=== PATIENT | female | born 1950 | race Caucasian/White ===

== ENCOUNTER 2017-11-30 11:42 | Outpatient (CLI) | payer MEDICARE, MEDICAID | END 2017-11-30 11:43 | disposition home or self-care (01) | LOC: BICMAMMO 11:42 | PROVIDERS: ATTEND Family Medicine | DX: Z12.31 Encounter for screening mammogram for malignant neoplasm of breast (principal); R92.8 Other abnormal and inconclusive findings on diagnostic imaging of breast; Z80.3 Family history of malignant neoplasm of breast | CPT/HCPCS: 77063; 77067 ==

== ENCOUNTER → 2017-12-20 | Day surgery (SDC) | payer MEDICARE, MEDICAID | LOC: BICULT 12:36 | PROVIDERS: ATTEND Family Medicine | PROC: 0HBU3ZX Excision of Left Breast, Percutaneous Approach, Diagnostic (ICD-10-PCS; principal; 2017-12-20) | DX: D24.2 Benign neoplasm of left breast (principal) | CPT/HCPCS: 19083; 88305 ==

== ENCOUNTER 2019-09-03 21:36 | Inpatient (IN) | payer MEDICARE, MEDICAID ==
[~2019-09-03 21:36] MED LIST: Iopamidol 370 76% 100 ML VIAL ONE
[2019-09-03] MEDS ORDERED: Adenosine 6 MG/2 ML VIAL ONE (21:59)
[2019-09-03] MEDS ORDERED: Magnesium 2 GM/50 ML BAG (IN WATER) ONE ×2 (22:07→22:24)
[2019-09-03] MEDS ORDERED: Diltiazem 125 MG/25 ML ONE ×2 (22:07→22:09)
[2019-09-03 22:36] LABS: #Basophils 0.1 thou/uL (0.0-0.2); #Eosinphils 0.4 thou/uL (0.0-0.7); #Lymphocytes 2.8 thou/uL (1.20-3.40); #Monocytes 0.8 thou/uL (0.11-0.59); #Neutrophils 6.8 thou/uL (1.40-6.50); %Basophils 0.9 % (0.0-1.0); %Eosinophils 3.7 % (0.0-10.0); %Lymphocytes 25.9 % (21.0-51.0); %Monocytes 7.4 % (0.0-10.0); %Neutrophils 62.1 % (42.0-75.0); Hemoglobin 12.8 g/dL (12.0-16.0); Mean Corpuscular HGB CONC 33.1 g/dL (32.0-36.0); Mean Corpuscular Hemoglobin 28.6 pg (27.0-31.0); Mean Corpuscular Volume 86.3 fL (78.0-98.0); Mean Platelet Volume 7.7 fL (7.4-10.4); Platelet Count 322 thou/uL (130-400); RBC Distribution Width 14.5 % (11.5-14.5); Red Blood Cell (RBC) Count 4.46 mill/uL (4.20-5.40); White Blood Cell (WBC) Count 10.9 thou/uL (4.8-10.8)
[2019-09-03 23:05] LABS: ALT (SGPT) 13 U/L (8-55); AST (SGOT) 17 U/L (5-34); Albumin 4.1 g/dL (3.4-4.8); Alkaline Phosphatase 69 U/L (40-110); Anion Gap 16 mmol/L (10-20); BUN (Urea Nitrogen) 47 mg/dL (9.8-20.1); Bilirubin, Total 0.3 mg/dL (0.2-1.2); Calc. Creatinine Clearance 0 mL/min (70-130); Carbon Dioxide 22 mmol/L (23-31); Chloride 101 mmol/L (98-107); Estimated GFR-MDRD Greater than 90; Globulin 3.8 g/dL (2.4-3.5); Glucose 152 mg/dL (80-115); Lipase 58 U/L (8-78); Protein, Total 7.9 g/dL (6.0-8.3); Sodium 135 mmol/L (136-145)
[2019-09-03 23:19] LABS: CKMB 1.2 ng/mL (0-6.6)
--- NOTE | 2019-09-03 23:44 | RAD ---
PORTABLE CHEST: History: Shortness of breath. Comparison: 01-12-10 FINDINGS: Cardiomegaly. Vascular congestion. I cannot exclude small effusion or bibasilar atelectasis. POS: [facility]
[2019-09-04 00:28] LABS: Bilirubin Negative (Negative); Blood, Urine 1+ (Negative); Clarity Clear (Clear); Glucose, Urine (Dipstick) Normal (Negative); Leukocyte 500 Leu/uL (Negative); Nitrite Negative (Negative); Protein, Urine (Dipstick) 10 mg/dL (Neg-Trace); RBC/HPF 0-3 HPF (0-3); Squamous Epithelial 0-3 HPF (0-3); Urobilinogen Normal mg/dL (Less than 2); WBC/HPF 21-50 HPF (0-3)
[2019-09-04 00:29] LABS: Bacteria/HPF 1+ HPF (None Seen)
[2019-09-04] MEDS ORDERED: cefTRIAXone\\ROCEPHIN 1 GM VIAL ONE (01:45)
[2019-09-04 03:13] LABS: Troponin I 0.023 ng/mL (< 0.028)
[2019-09-04] MEDS ORDERED: Digoxin 0.5 MG/2 ML AMP SLOW IVP SCH (04:45)
[2019-09-04] MEDS ORDERED: Digoxin 0.5 MG/2 ML AMP ONE (04:54)
[2019-09-04] MEDS ORDERED: Metoprolol Tartrate 5 MG/5 ML VIAL ONE (06:38)
[2019-09-04] MEDS ORDERED: Metoprolol Tartrate 5 MG/5 ML VIAL IVP SCH (06:45)
--- NOTE | 2019-09-04 07:21 | CT ---
CTA CHEST WITH CONTRAST: Date: 09/03/2019 Axial tomograms with multiplanar reconstruction following angio protocol. INDICATION: History of supraventricular tachycardia. Shortness of breath. FINDINGS: Pulmonary arteries are adequately opacified. No evidence of pulmonary embolus identified. There are chronic lung changes. No focal infiltrate or effusion. There is a 5.0 mm nodule in the right mid lung seen on image 67 of 102, right middle lobe. Mild inter stitial thickening. There is mild vascular congestion. Cardiomegaly. Images through upper abdomen unremarkable. Thoracic aorta unremarkable. IMPRESSION: 1. No evidence of pulmonary embolus. 2. 5.0 mm nodule in the right middle lobe. Follow-up recommended. 3. No acute lung process. Mild vascular congestion. CODE LN. POS: [facility]
[2019-09-04] MEDS ORDERED: Diltiazem 125 MG in Sodium Chloride 0.9% 100 ML IVPB SCH (10:00)
[2019-09-04] MEDS ORDERED: Lactated Ringer's 1,000 ML IV SCH (10:00)
[2019-09-04] MEDS ORDERED: Heparin 5,000 UNITS/ML VIAL SC SCH ×2 (10:15→15:00)
--- NOTE | 2019-09-04 14:28 | CON ---
DATE OF CONSULTATION: 09/04/2019 INDICATION FOR CONSULTATION: A 69-year-old female with new onset atrial flutter. 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 She has had no previous cardiac history, but did undergo a stress test several years ago by Dr. Martin, prior to undergoing a workup for possible gastric bypass surgery, bariatric surgery. This was not performed, but the preop test apparently did not show any evidence of ischemia. She has had no previous cardiac history otherwise that she is aware. She denies any chest pain or significant shortness of breath. She says she does have occasional mild shortness of breath, but when the heart rate gets very fast for the last couple weeks, she has noticed that she had an increased heart rate and when the nurses in the skilled nursing have been checking her heart rate sometimes her heart rate has been as high as 130 to 160, but apparently no one was informed of this and the patient was remaining asymptomatic. She did not have any chest pain, but apparently when her physician was making rounds yesterday, she told about this and noticed the heart rate was fast. She was sent to the emergency room, she was noted to be in a rapid heart rate with atrial flutter with a heart rate in the 150s to 160s, but she still remains relatively asymptomatic despite the rapid heart rate and the atrial flutter. She has had some possible history of supraventricular tachycardia. She had been given some adenosine in the past, but apparently this was not adequate to change her back to a sinus rhythm. She also was given some medications, which dropped her heart rate down to the 60s, but they went back to the 180s and vagal maneuvers also did not significantly change her heart rate. She did have some decrease in her blood pressure. At this time, she has been placed on IV diltiazem and the heart rate is under much better control. She is in the 60s now, but still has atrial flutter, which appears to be with a variable block. PAST MEDICAL HISTORY: Significant for polio, which has affected all four extremities. Her left leg is stronger than the right, but she also has left-sided arthritis. Otherwise, she has had no significant problems with the poliomyelitis. She does have decreased ambulation. She has had bedsores. She has bronchitis. She has frequent urinary tract infections. She is almost quadriplegic, but hemiplegic. She is in the bed most of the time and cannot even mobilize in the bed to a chair. She does have type 2 diabetes. She also has a history of hypertension. She denied any other significant medical problems. She has had pain both in the shoulders, more so on the right than the left. She has had a . She has had a hysterectomy. SOCIAL HISTORY: She is a resident in a skilled nursing. She smoked many, many years ago only for about a year and then stopped smoking. She has no other illicit drug use. She has children, who are alive and well. She lives in the long-term care facility. ALLERGIES: SHE IS ALLERGIC TO BACTRIM. MEDICATIONS: Prior to admission, she said she was taking metformin and glyburide. She was taking an ARB and I believe that was recently changed by the insurance company. She is unsure as to what she is taking and she takes multivitamins. She also takes some type of medication she says for wound healing, but she was uncertain of the name of the medication. REVIEW OF SYSTEMS: GENERAL: Relatively unremarkable except she does have occasional allergies. She said that she has had no other complaints. HEENT: She wears glasses. Has false teeth. PULMONARY: She had no pulmonary complaints otherwise and occasional bronchitis. GI: She had no GI complaints. : Occasional urinary tract infections. MUSCULOSKELETAL: She has some left arm arthritis. PHYSICAL EXAMINATION: GENERAL: Reveals an elderly female, who is in no acute distress at this time. She is morbidly obese. She is in the bed. She is unable to get out of the bed. VITAL SIGNS: Her blood pressure was 121/58, heart rate at this time is in the 60s, but she had previously been always up of 160 beats per minute. She is afebrile and respiratory rate 16. HEENT: Shows the head to be normocephalic and atraumatic. Carotid pulses are present. There were no bruits. CHEST: Clear to auscultation. I did not hear any rales, rhonchi, or wheezing. CARDIOVASCULAR: Reveals a regular rate at this time, under good control. The monitor shows what appears to be atrial flutter with a variable block. ABDOMEN: Shows obesity with positive bowel sounds. I cannot palpate any masses or tenderness. EXTREMITIES: Showed no clubbing. She does have some malformation of the feet. She also has some mild edema. Pulses are difficult to palpate due to the edema. NEUROLOGIC: As noted above, she is hardly able to move any of her extremities, but the right is weaker than the left, but she does have hemiplegia. NEUROPSYCH: She does not have any other significant abnormalities such as severe depression or suicidal ideation. SKIN: Warm and dry. DIAGNOSTIC STUDIES: Her EKG shows what appears to be atrial flutter in the emergency room. According to the records, she appeared to be in supraventricular tachycardia with a heart rate of 182 beats per minute. LABORATORY DATA: Her WBC is 10.9, hemoglobin 12.8, and platelet count 322,000. Sodium is 135, potassium 4.0, BUN 47, creatinine 0.62, and blood sugar was 152. Troponin I was 0.042 decreased down to 0.023 and down again to 0.020. BNP was 41. Urinalysis shows 1+ bacteria. IMPRESSION AND PLAN: 1. Elderly morbidly obese female, who is essentially bed ridden, who has developed what appears to be atrial flutter. We will ask senior payroll specialist to visit with the patient, see whether or not she would be a candidate to undergo a transesophageal echocardiogram and then possible ablation of the atrial flutter. We would agree at this time with continuing her heparin, for which she has been placed on IV diltiazem and heparin at this time. 2. History of diabetes. This will be dealt with by the Primary Care Service. 3. History of hypertension. She is under very good control at this time. We will continue to monitor this. We may need to reinstate some type of blood pressure medications. 4. Post-polio syndrome. She is in a long-term care facility due to her inability to take care of herself. She is almost unable to move. She does have hemiparesis and almost appears to be quadriplegic, but is still alert and oriented. We will be more than happy to continue to follow the patient with you, but we will also obtain an echocardiogram for evaluation of left ventricular systolic function. We will await further recommendations from the senior payroll specialist. Job ID: [id number]
--- NOTE | 2019-09-04 15:25 | PDOC.HHP ---
Hospitalist HPI - History of Present Illness shortness of breath and palpitations History of Present Illness: Ms. Ibarra is a 69yo F w/ MHx of Polio, T2DM, adn HTN who presents for shortness of breath associated with palpitaitions. Has been having episodic shortness of breath temporally related to the heart beating fast over the past two weeks in [facility], where she resides. Earlier today, nurse noticed that the patient had elevated heart rate while compllaining of shortness of breath, so sent her to the ED. On encounter, lying comfortably in bed. Endorses temporal correlation between shortness of breath and palpitations for the past two weeks. Denies fatigue, generalized weakness, fever ,chills, night sweats, heat intolerance, cough, sputum production, chest pressure or pain, pleuritic pain, blood loss, melena, hematochezia, sick contacts, cardiac history, smoking, ROSI, pulmonary disease ED Course: In the ED, found to initially have difficult to control SVT. administered metoprolol, digoxin without sigfniciant improvement. Adenosine was administered and showed atrial flutter. As patients's blood pressure improved, cardizem started and rate improved to 70s, atrial flutter. She was admitted to telemetry for further workup and monitoring. Hospitalist ROS - Review of Systems Constitutional: denies: fever, chills, sweats, weakness, malaise, other Respiratory: denies: cough, dry, shortness of breath, hemoptysis, SOB with excertion, pleuritic pain, sputum, wheezing, other Cardiovascular: reports: palpitations, edema (edema chronic). denies: orthopnea , paroxysmal noc. dyspnea, light headedness Gastrointestinal: denies: nausea, vomiting, abdominal pain, diarrhea, constipation, melena, hematochezia, other Genitourinary: reports: other (chronic urinary sun last changed day prior to presentation (09/02)). denies: dysuria, frequency, incontinence, hematuria, retention Neurological: reports: weakness (can move UE and LLE, can't RLE; at baseline). denies: change in speech, confusion, seizures - Medication Medications: Active Medications Generic Name Dose Route Start Last Admin Trade Name Freq PRN Reason Stop Dose Admin Heparin Sodium (Porcine) 5,000 units 09/04/19 15:00 09/04/19 14:47 Heparin SC 5,000 units TID [facility] Hospitalist History - Past Medical History Source: patient Cardiac: reports: HTN. denies: AFIB, CAD, CHF, Syncope Pulmonary: reports: hypertension. denies: CVA/TIA/stroke, congestive heart failure, COPD, lung disease Gastrointestinal: denies: GI bleed Endocrine: reports: Diabetes Other Medical History: polio - Past Surgical History Past Surgical History: reports: no pertinent history - Family History Family History: reports: diabetes mellitus - Social History Smoking Status: Never smoker Alcohol: reports: None Drugs: reports: none Living Situation: [facility] Activity level: wheelchair bound - Exam General Appearance: NAD, awake alert Eye: PERRL, anicteric sclera Neck: no JVD Heart: no murmur, no gallops, irregular, diminshed peripheral pulses Respiratory: CTAB, no wheezes, no rales, no ronchi Gastrointestinal: soft, non-tender, non-distended, normal bowel sounds Extremities: 2+ LE edema Extremities - other findings: nonpitting edema Neurological: cranial nerve grossly intact, normal sensation to touch, no focal deficits, no new deficit. negative: facial droop Musculoskeletal - other findings: UE: 3/5, RLE 0/5, LLE 3/5; pretibial erythema Psychiatric: normal affect, normal behavior, A&O x 3 Hospitalist Results - Labs Result Diagrams: 09/03/19 22:24 09/03/19 22:24 Lab results: WBC 10.9 thou/uL (4.8-10.8) H 09/03/19 22:24 Hgb 12.8 g/dL (12.0-16.0) 09/03/19 22:24 Hct 38.5 % (36.0-47.0) 09/03/19 22:24 MCV 86.3 fL (78.0-98.0) 09/03/19 22:24 Plt Count 322 thou/uL (130-400) 09/03/19 22:24 Neutrophils % 62.1 % (42.0-75.0) 09/03/19 22:24 Sodium 135 mmol/L (136-145) L 09/03/19 22:24 Potassium 4.0 mmol/L (3.5-5.1) 09/03/19 22:24 Chloride 101 mmol/L (98-107) 09/03/19 22:24 Carbon Dioxide 22 mmol/L (23-31) L 09/03/19 22:24 BUN 47 mg/dL (9.8-20.1) H 09/03/19 22:24 Creatinine 0.62 mg/dL (0.6-1.1) 09/03/19 22:24 Glucose 152 mg/dL (80-115) H 09/03/19 22:24 Calcium 10.0 mg/dL (7.8-10.44) 09/03/19 22:24 Total Bilirubin 0.3 mg/dL (0.2-1.2) 09/03/19 22:24 AST 17 U/L (5-34) 09/03/19 22:24 ALT 13 U/L (8-55) 09/03/19 22:24 Alkaline Phosphatase 69 U/L (40-110) 09/03/19 22:24 CK-MB (CK-2) 1.2 ng/mL (0-6.6) 09/03/19 22:24 Troponin I 0.020 ng/mL (< 0.028) 09/04/19 05:18 B-Natriuretic Peptide 41.4 pg/mL (0-100) 09/03/19 22:24 Serum Total Protein 7.9 g/dL (6.0-8.3) 09/03/19 22:24 Albumin 4.1 g/dL (3.4-4.8) 09/03/19 22:24 Lipase 58 U/L (8-78) 09/03/19 22:24 Urine Ketones Negative mg/dL (Negative) 09/03/19 23:33 Urine Blood 1+ (Negative) A 09/03/19 23:33 Urine Nitrite Negative (Negative) 09/03/19 23:33 Ur Leukocyte Esterase 500 [place]/uL (Negative) A 09/03/19 23:33 Urine RBC 0-3 HPF (0-3) 09/03/19 23:33 Urine WBC 21-50 HPF (0-3) A 09/03/19 23:33 Ur Squamous Epith Cells 0-3 HPF (0-3) 09/03/19 23:33 Urine Bacteria 1+ HPF (None Seen) A 09/03/19 23:33 - EKG Interpretation EKG: atrial flutter, HR 70s on cardizem 5mg drip Hospitalist H&P A/P - Problem (1) New onset atrial flutter Code(s): I48.92 - UNSPECIFIED ATRIAL FLUTTER Status: Acute (2) Type 2 diabetes mellitus Status: Acute (3) Hypertension Code(s): I10 - ESSENTIAL (PRIMARY) HYPERTENSION Status: Acute (4) Polio Code(s): A80.9 - ACUTE POLIOMYELITIS, UNSPECIFIED Status: Acute - Plan Plan: #new onset atrial flutter -symtpoms for past two weeks -chadsvasc 4, hasbled 2; no contraindication to anticoagulation -currently rate controlled on cardizem drip 5mg/hr Plan: -start lovenox -continue cardizem; goal HR <110 or <85 if symptomatic; can increase to 7.5mg/ hr if above -pending EP evaluation #Type 2 DM -started mild sliding scale #HTN -started home medicatiions disposition/PPx -full code per patient -DVT PPx: on lovenox for atiral flutter -GI PPx: not indication Expected LOS: 2 midnights
[2019-09-04] MEDS: Sodium Chloride 0.9% 1,000 ML IV SCH (19:16)
[2019-09-04] MEDS: Diltiazem 125 MG in Sodium Chloride 0.9% 100 ML IVPB SCH (19:25)
[2019-09-04] MEDS ORDERED: Cyclobenzaprine 10 MG TAB PO PRN (19:34)
[2019-09-04] MEDS ORDERED: Melatonin 3 MG TAB PO PRN (19:34)
[2019-09-04] MEDS ORDERED: diphenhydrAMINE 50 MG CAP PO PRN (19:34)
[2019-09-04] MEDS: Enoxaparin Sodium 100 MG/ML SYRINGE SC SCH (20:23)
--- NOTE | 2019-09-04 22:56 | EKG ---
Test Reason : Blood Pressure : / mmHG Vent. Rate : 063 BPM Atrial Rate : 058 BPM P-R Int : 000 ms QRS Dur : 088 ms QT Int : 416 ms P-R-T Axes : 000 005 -14 degrees QTc Int : 425 ms Atrial fibrillation Low voltage QRS Nonspecific T wave abnormality , probably digitalis effect Abnormal ECG When compared with ECG of 03-SEP-2019 23:20, (Unconfirmed) Atrial fibrillation has replaced Sinus rhythm Vent. rate has decreased BY 68 BPM Incomplete right bundle branch block is no longer Present Confirmed by TUNDE CARLIN, SSang ([id number]) on 09/04/2019 10:56:33 PM Referred By: JUANCARLOS Confirmed By:DR. Daniel GRIFFITHS MD
[2019-09-05] MEDS ORDERED: Acetaminophen 325 MG TAB PO PRN (03:46)
[2019-09-05 04:26] LABS: Hemoglobin 10.4 g/dL (12.0-16.0); Platelet Count 295 thou/uL (130-400)
[2019-09-05 04:49] LABS: Anion Gap 11 mmol/L (10-20); BUN (Urea Nitrogen) 21 mg/dL (9.8-20.1); Calc. Creatinine Clearance 164 mL/min (70-130); Calcium 8.8 mg/dL (7.8-10.44); Carbon Dioxide 23 mmol/L (23-31); Chloride 105 mmol/L (98-107); Estimated GFR-MDRD Greater than 90; Glucose 121 mg/dL (80-115); Magnesium 1.9 mg/dL (1.6-2.6); Potassium 3.7 mmol/L (3.5-5.1); Sodium 135 mmol/L (136-145)
[2019-09-05] MEDS ORDERED: FLU VACC TS2019-20(65YR UP)/PF 180 MCG/0.5 ML SYRINGE IM ONE (09:00)
[2019-09-05] MEDS: Saccharomyces boulardii 250 MG CAP PO SCH (09:11)
[2019-09-05] MEDS: Triamterene/Hydrochlorothiazide 37.5 mg/25 mg Tablet PO SCH (09:11)
[2019-09-05] MEDS: Aspirin 81 mg Enteric Coated Tablet PO SCH (09:11)
[2019-09-05] MEDS: Sodium Chloride 0.9% 1,000 ML IV SCH ×2 (09:12→22:19)
--- NOTE | 2019-09-05 11:18 | PDOC.CPN ---
- Subjective Date: 09/05/19 Time: 08:30 Interval history: The pt seen and examined. No overnight events. No cardiac complaints. - Objective Allergies/Adverse Reactions: Allergies Allergy/AdvReac Type Severity Reaction Status Date / Time sulfamethoxazole Allergy Verified 09/04/19 14:45 [From Bactrim] trimethoprim [From Bactrim] Allergy Verified 09/04/19 14:45 Visit Medications: Current Medications Acetaminophen (Tylenol) 650 mg PO Q6H PRN PRN Reason: Pain Last Admin: 09/05/19 03:54 Dose: 650 mg Aspirin (Ecotrin) 81 mg PO DAILY [facility] Last Admin: 09/05/19 09:11 Dose: 81 mg Cyclobenzaprine HCl (Flexeril) 5 mg PO Q8H PRN PRN Reason: Muscle Spasm Diphenhydramine HCl (Benadryl) 50 mg PO Q6H PRN PRN Reason: .Itching Enoxaparin Sodium (Lovenox) 100 mg SC 0900,2100 [facility] Last Admin: 09/04/19 20:23 Dose: 100 mg Diltiazem HCl 125 mg/ Sodium (Chloride) 125 mls @ 5 mls/hr IVPB INF [facility]; Protocol Last Admin: 09/04/19 19:25 Dose: 125 mls Sodium Chloride (Normal Saline 0.9%) 1,000 mls @ 70 mls/hr IV .[id number] [facility] Last Admin: 09/05/19 09:12 Dose: 1,000 mls Insulin Human Lispro (Humalog) 0 units SC .MILD SLIDING SCALE PRN PRN Reason: Mild Correctional Scale Magnesium Hydroxide (Milk Of Magnesium) 30 ml PO DAILY PRN PRN Reason: Constipation Melatonin (Melatonin) 3 mg PO HS PRN PRN Reason: Insomnia Saccharomyces Boulardii (Florastor) 250 mg PO DAILY [facility] Last Admin: 09/05/19 09:11 Dose: 250 mg Triamterene/HCTZ (Maxzide-25) 1 tab PO DAILY [facility] Last Admin: 09/05/19 09:11 Dose: 1 tab Vital Signs & Weight: Vital Signs Temp Pulse Resp BP Pulse Ox 09/05/19 08:00 97.9 F 127 H 17 115/74 93 L 09/05/19 03:33 98.3 F 108 H 18 116/61 96 09/05/19 00:00 98.4 F 126 H 22 H 118/66 96 Weight 214 lb 6.4 oz - Physical Exam General: alert & oriented x3 HEENT: mucus membranes moist Neck: supple neck Cardiac: irregularly regular Lungs: clear to auscultation, decreased breath sounds - Labs Result Diagrams: 09/05/19 04:07 09/05/19 04:07 Troponin/CKMB CK-MB (CK-2) 1.2 ng/mL (0-6.6) 09/03/19 22:24 Troponin I 0.020 ng/mL (< 0.028) 09/04/19 05:18 - Telemetry Supraventricular conduction: atrial flutter - Assessment/Plan Assessment/Plan: 1. New onset Atrial flutter - HR has been 90-120s with Diltiazem 5mg/h; will start Coreg 3.125mg BID from today; if she cannot tolerate, may change to Digoxin; On Lovenox BID; Possible Aflutter RFA by Dr Gillespie in 2 days. 2. HTN - stable 3. DM type 2 - 4. Frequent UTIs 5. Polio - 6. Obese - strongly recommend to watch her diet. MAR reviewed Pt. seen and eval. by me.I agree with the A/P by the LAMINATING MACHINE OFFBEARER.Chest clear. regular rhythm. Monitor indicates atrial flutter. See plan per 's note. sergo
[2019-09-05] MEDS ORDERED: Carvedilol 3.125 MG TAB PO SCH (11:30)
[2019-09-05] MEDS: Enoxaparin Sodium 100 MG/ML SYRINGE SC SCH ×2 (11:59→20:13)
--- NOTE | 2019-09-05 13:10 | PDOC.EP ---
- Subjective Date: 09/05/19 Time: 08:00 Interval History: Follow up for atrial arrhythmias. Feels well. She is wanting an ablation instead of CV now. Voices no complaints. - Review of Systems Constitutional: denies: chills, fever, malaise, sweats, weakness, other Respiratory: denies: cough, dry, hemoptysis, pleuritic pain, shortness of breath , SOB with excertion, sputum, wheezing Cardiology: denies: chest pain, edema, heart racing, light headedness, palpitations Gastrointestinal: denies: abdominal pain, constipation, diarrhea - Objective Allergies/Adverse Reactions: Allergies Allergy/AdvReac Type Severity Reaction Status Date / Time sulfamethoxazole Allergy Verified 09/04/19 14:45 [From Bactrim] trimethoprim [From Bactrim] Allergy Verified 09/04/19 14:45 Current Medications Acetaminophen (Tylenol) 650 mg PO Q6H PRN PRN Reason: Pain Last Admin: 09/05/19 03:54 Dose: 650 mg Aspirin (Ecotrin) 81 mg PO DAILY [facility] Last Admin: 09/05/19 09:11 Dose: 81 mg Carvedilol (Coreg) 3.125 mg PO BID-[facility] Carvedilol (Coreg) 3.125 mg PO NOW [facility] Stop: 09/05/19 13:30 Last Admin: 09/05/19 11:58 Dose: 3.125 mg Cyclobenzaprine HCl (Flexeril) 5 mg PO Q8H PRN PRN Reason: Muscle Spasm Diphenhydramine HCl (Benadryl) 50 mg PO Q6H PRN PRN Reason: .Itching Enoxaparin Sodium (Lovenox) 100 mg SC 0900,2100 [facility] Last Admin: 09/05/19 11:59 Dose: 100 mg Diltiazem HCl 125 mg/ Sodium (Chloride) 125 mls @ 5 mls/hr IVPB INF [facility]; Protocol Last Admin: 09/04/19 19:25 Dose: 125 mls Sodium Chloride (Normal Saline 0.9%) 1,000 mls @ 70 mls/hr IV .[id number] [facility] Last Admin: 09/05/19 09:12 Dose: 1,000 mls Insulin Human Lispro (Humalog) 0 units SC .MILD SLIDING SCALE PRN PRN Reason: Mild Correctional Scale Magnesium Hydroxide (Milk Of Magnesium) 30 ml PO DAILY PRN PRN Reason: Constipation Melatonin (Melatonin) 3 mg PO HS PRN PRN Reason: Insomnia Saccharomyces Boulardii (Florastor) 250 mg PO DAILY [facility] Last Admin: 09/05/19 09:11 Dose: 250 mg Triamterene/HCTZ (Maxzide-25) 1 tab PO DAILY [facility] Last Admin: 09/05/19 09:11 Dose: 1 tab Vital Signs & Weight: Vital Signs Temp Pulse Pulse Pulse Resp BP BP 09/05/19 12:00 97.2 F L 99 17 09/05/19 09:35 72 127 H 151/72 H 115/74 09/05/19 08:00 97.9 F 127 H 17 09/05/19 03:33 98.3 F 108 H 18 BP Pulse Ox 09/05/19 12:00 129/91 H 94 L 09/05/19 09:35 09/05/19 08:00 115/74 93 L 09/05/19 03:33 116/61 96 Weight 214 lb 6.4 oz I/O: I/O 09/04/19 09/05/19 09/06/19 06:59 06:59 06:59 Intake Total 2243 Output Total 1905 Balance 338 - Quality Measures Condition: Atrial Fibrillation/Flutter (hx or current) (lovenox) - Physical Exam General: alert & oriented x3, appears well, no apparent distress, speech clear, affect appropriate HEENT: mucus membranes moist, normocephaly Neck: supple neck, midline trachea, no JVD/HJR, no masses, no bruit, no lymphadenopathy, no thromegaly Cardiology: PMI nondisplaced Lungs: clear to auscultation Neurology: cranial nerve 2-12 intact, sensory function intact, no lateralizing findings Abdomen: unremarkable, active bowel sounds, no pulsations/bruits - Labs Result Diagrams: 09/05/19 04:07 09/05/19 04:07 - EKG Interpretation EKG Method: Telemetry EKG shows: Typical atrial flutter - Assessment/Plan Assessment/Plan: 1. Atrial flutter -appears CTI dependent 2. Obesity 3. Paraplegic 4. Anticoagulation with lovenox Discussed treatment options with patient at length yesterday. After consideration she wishes to proceed with KATHY guided CTI ablation. Scheduled for 09/05 at 2pm. If no intra-atrial thrombus identified by KATHY will proceed with CTI ablation. Continue lovenox. R/B/A discussed and patient is wishing to proceed.
[2019-09-05 14:37] VITALS: BMI 40.5
[2019-09-05] MEDS: Carvedilol 3.125 MG TAB PO SCH (17:45)
--- NOTE | 2019-09-05 21:46 | PDOC.HOSPP ---
- Subjective Encounter Date: 09/05/19 Encounter Time: 09:00 Subjective: no overnight events. HR 90-100s. Has no complaints. Pending ablation. - Objective Vital Signs & Weight: Vital Signs (12 hours) Temp Pulse Resp BP Pulse Ox 09/05/19 20:00 99.1 F 87 18 135/73 94 L 09/05/19 16:00 97.5 F L 102 H 26 H 160/71 H 96 09/05/19 12:00 97.2 F L 99 17 129/91 H 94 L Weight Admit Weight 212 lb 12.8 oz Weight 214 lb 6.4 oz I&O: 09/04/19 09/05/19 09/06/19 06:59 06:59 06:59 Intake Total 2243 1800 Output Total 1905 800 Balance 338 1000 Result Diagrams: 09/05/19 04:07 09/05/19 04:07 Additional Labs: Accuchecks 09/05/19 09/05/19 09/05/19 20:27 16:36 10:32 POC Glucose 197 H 204 H 150 H 09/05/19 05:37 POC Glucose 133 H Hospitalist ROS - Review of Systems Constitutional: denies: fever, chills, sweats, weakness, malaise, other Respiratory: denies: cough, dry, shortness of breath, hemoptysis, SOB with excertion, pleuritic pain, sputum, wheezing, other Cardiovascular: denies: chest pain, palpitations, orthopnea, paroxysmal noc. dyspnea, edema, light headedness, other Gastrointestinal: denies: nausea, vomiting, abdominal pain, diarrhea, constipation, melena, hematochezia, other Genitourinary: denies: dysuria, frequency, incontinence, hematuria, retention, other - Medication Medications: Active Medications Generic Name Dose Route Start Last Admin Trade Name Freq PRN Reason Stop Dose Admin Acetaminophen 650 mg 09/05/19 03:46 09/05/19 03:54 Tylenol PO 650 mg Q6H PRN Administration Pain Aspirin 81 mg 09/05/19 09:00 09/05/19 09:11 Ecotrin PO 81 mg DAILY BLANQUITA Administration Carvedilol 3.125 mg 09/05/19 17:00 09/05/19 17:45 Coreg PO 3.125 mg BID- BLANQUITA Administration Enoxaparin Sodium 100 mg 09/04/19:00 09/05/19 20:13 Lovenox SC 100 mg 0900,2100 BLANQUITA Administration Diltiazem HCl 125 mg/ Sodium 125 mls @ 5 mls/hr 09/04/19 15:30 09/04/19 19:25 Chloride IVPB 125 mls INF BLANQUITA Administration Protocol Sodium Chloride 1,000 mls @ 70 mls/hr 09/04/19 18:30 09/05/19 09:12 Normal Saline 0.9% IV 1,000 mls .[id number] BLANQUITA Administration Saccharomyces Boulardii 250 mg 09/05/19 09:00 09/05/19 09:11 Florastor PO 250 mg DAILY BLANQUITA Administration Triamterene/HCTZ 1 tab 09/05/19 09:00 09/05/19 09:11 Maxzide-25 PO 1 tab DAILY BLANQUITA Administration - Exam General Appearance: NAD, awake alert Heart: no murmur, no gallops, no rubs, irregular Heart - other findings: HR 90s-100s, aflut on telemetry Respiratory: CTAB, no wheezes, no rales, no ronchi, normal chest expansion, no tachypnea, normal percussion Gastrointestinal: soft, non-tender, non-distended, normal bowel sounds, no palpable masses, no hepatomegaly, no splenomegaly, no bruit Extremities: 2+ LE edema Musculoskeletal - other findings: unchanged Psychiatric: normal affect, normal behavior, A&O x 3 Hosp A/P (1) New onset atrial flutter Code(s): I48.92 - UNSPECIFIED ATRIAL FLUTTER Status: Acute (2) Type 2 diabetes mellitus Status: Acute (3) Hypertension Code(s): I10 - ESSENTIAL (PRIMARY) HYPERTENSION Status: Acute (4) Polio Code(s): A80.9 - ACUTE POLIOMYELITIS, UNSPECIFIED Status: Acute - Plan (1) New onset atrial flutter Code(s): I48.92 - UNSPECIFIED ATRIAL FLUTTER Status: Acute (2) Type 2 diabetes mellitus Status: Acute (3) Hypertension Code(s): I10 - ESSENTIAL (PRIMARY) HYPERTENSION Status: Acute (4) Polio Code(s): A80.9 - ACUTE POLIOMYELITIS, UNSPECIFIED Status: Acute Plan: #new onset atrial flutter -continue cardizem; goal HR <110 or <85 if symptomatic; can increase to 7.5mg/ hr if above -pending EP ablation 09/05 #Type 2 DM -started mild sliding scale #HTN -continue home medicatiions disposition/PPx -full code per patient -DVT PPx: on lovenox for atiral flutter -GI PPx: not indication Expected LOS: 2 midnights
[2019-09-05] MEDS: Diltiazem 125 MG in Sodium Chloride 0.9% 100 ML IVPB SCH (22:19)
[2019-09-05] MEDS: Milk Of Magnesia 30 ML UDCUP PO PRN (22:26)
[2019-09-06 04:46] LABS: #Eosinphils 0.3 thou/uL (0.0-0.7); #Lymphocytes 1.3 thou/uL (1.20-3.40); #Monocytes 0.5 thou/uL (0.11-0.59); #Neutrophils 5.9 thou/uL (1.40-6.50); %Basophils 0.5 % (0.0-1.0); %Eosinophils 3.3 % (0.0-10.0); %Lymphocytes 15.8 % (21.0-51.0); %Monocytes 6.8 % (0.0-10.0); %Neutrophils 73.5 % (42.0-75.0); Hemoglobin 10.7 g/dL (12.0-16.0); Mean Corpuscular HGB CONC 32.8 g/dL (32.0-36.0); Mean Corpuscular Hemoglobin 28.5 pg (27.0-31.0); Mean Corpuscular Volume 86.9 fL (78.0-98.0); Platelet Count 310 thou/uL (130-400); RBC Distribution Width 14.2 % (11.5-14.5); Red Blood Cell (RBC) Count 3.74 mill/uL (4.20-5.40)
[2019-09-06 05:10] LABS: Anion Gap 10 mmol/L (10-20); BUN (Urea Nitrogen) 18 mg/dL (9.8-20.1); Calc. Creatinine Clearance 152 mL/min (70-130); Calcium 8.6 mg/dL (7.8-10.44); Carbon Dioxide 24 mmol/L (23-31); Chloride 106 mmol/L (98-107); Estimated GFR-MDRD Greater than 90; Glucose 141 mg/dL (80-115); Magnesium 1.9 mg/dL (1.6-2.6); Potassium 4.1 mmol/L (3.5-5.1); Sodium 136 mmol/L (136-145)
[2019-09-06] MEDS: Triamterene/Hydrochlorothiazide 37.5 mg/25 mg Tablet PO SCH (06:10)
[2019-09-06] MEDS: Aspirin 81 mg Enteric Coated Tablet PO SCH (06:10)
[2019-09-06] MEDS: Carvedilol 3.125 MG TAB PO SCH ×2 (06:10→18:55)
[2019-09-06] MEDS: Saccharomyces boulardii 250 MG CAP PO SCH (06:10)
[2019-09-06] MEDS: Enoxaparin Sodium 100 MG/ML SYRINGE SC SCH ×2 (07:40→21:17)
[2019-09-06] MEDS ORDERED: Rocuronium Bromide 10 MG/ML (10ML VIAL) ONE (09:41)
[2019-09-06] MEDS ORDERED: Glycopyrrolate 0.2 MG/ML 5 ML SYRINGE ONE (09:41)
[2019-09-06] MEDS ORDERED: Succinylcholine Chloride 20 MG/ML 10 ml SYRINGE FS ONE (09:41)
[2019-09-06] MEDS ORDERED: PROPOFOL 200 MG/20 ML VIAL ONE (09:41)
[2019-09-06] MEDS ORDERED: Lidocaine 1% PF 5 ML VIAL ONE (09:41)
[2019-09-06] MEDS ORDERED: EPHEDRINE 25 MG/5 ML SYRINGE ONE (09:41)
--- NOTE | 2019-09-06 10:57 | PDOC.CPN ---
- Subjective Date: 09/06/19 Time: 08:30 Interval history: The pt seen and examined. No overnight events. No cardiac complaints. - Objective Allergies/Adverse Reactions: Allergies Allergy/AdvReac Type Severity Reaction Status Date / Time sulfamethoxazole Allergy Verified 09/04/19 14:45 [From Bactrim] trimethoprim [From Bactrim] Allergy Verified 09/04/19 14:45 Visit Medications: Current Medications Acetaminophen (Tylenol) 650 mg PO Q6H PRN PRN Reason: Pain Last Admin: 09/05/19 03:54 Dose: 650 mg Aspirin (Ecotrin) 81 mg PO DAILY [facility] Last Admin: 09/06/19 06:10 Dose: 81 mg Carvedilol (Coreg) 3.125 mg PO BID-[facility] Last Admin: 09/06/19 06:10 Dose: 3.125 mg Cyclobenzaprine HCl (Flexeril) 5 mg PO Q8H PRN PRN Reason: Muscle Spasm Diphenhydramine HCl (Benadryl) 50 mg PO Q6H PRN PRN Reason: .Itching Enoxaparin Sodium (Lovenox) 100 mg SC 0900,2100 [facility] Last Admin: 09/06/19 07:40 Dose: Not Given Diltiazem HCl 125 mg/ Sodium (Chloride) 125 mls @ 5 mls/hr IVPB INF [facility]; Protocol Last Admin: 09/05/19 22:19 Dose: 125 mls Sodium Chloride (Normal Saline 0.9%) 1,000 mls @ 70 mls/hr IV .[id number] [facility] Last Admin: 09/05/19 22:19 Dose: 1,000 mls Insulin Human Lispro (Humalog) 0 units SC .MILD SLIDING SCALE PRN PRN Reason: Mild Correctional Scale Magnesium Hydroxide (Milk Of Magnesium) 30 ml PO DAILY PRN PRN Reason: Constipation Last Admin: 09/05/19 22:26 Dose: 30 ml Melatonin (Melatonin) 3 mg PO HS PRN PRN Reason: Insomnia Saccharomyces Boulardii (Florastor) 250 mg PO DAILY [facility] Last Admin: 09/06/19 06:10 Dose: 250 mg Triamterene/HCTZ (Maxzide-25) 1 tab PO DAILY [facility] Last Admin: 09/06/19 06:10 Dose: 1 tab Vital Signs & Weight: Vital Signs Temp Pulse Resp BP Pulse Ox 09/06/19 07:41 98.2 F 78 18 121/73 95 09/06/19 03:15 98.5 F 86 20 117/68 95 Admit Weight 212 lb 12.8 oz Weight 214 lb 6.4 oz - Physical Exam General: alert & oriented x3 HEENT: mucus membranes moist Neck: supple neck Cardiac: irregularly regular Lungs: decreased breath sounds - Labs Result Diagrams: 09/06/19 04:08 09/06/19 04:08 Troponin/CKMB CK-MB (CK-2) 1.2 ng/mL (0-6.6) 09/03/19 22:24 Troponin I 0.020 ng/mL (< 0.028) 09/04/19 05:18 - Telemetry Supraventricular conduction: atrial flutter - Assessment/Plan Assessment/Plan: 1. New onset Atrial flutter - HR has been 70-100s with Diltiazem 5mg/h and Coreg 3.125mg BID; Plan for KATHY and CTI ablation today; 2. HTN - stable 3. DM type 2 - 4. Frequent UTIs 5. Polio - 6. Obese - strongly recommend to watch her diet. MAR shaniqua
[2019-09-06] MEDS: Sodium Chloride 0.9% 1,000 ML IV SCH (12:48)
[2019-09-06] MEDS ORDERED: Lidocaine 1% (PF) 30 ML VIAL ONE (13:10)
[2019-09-06] MEDS ORDERED: Heparin 10,000 UNITS/1 ML VIAL ONE (13:10)
[2019-09-06] MEDS ORDERED: Fentanyl 100 MCG/2 ML VIAL ONE ×2 (14:04→17:18)
[2019-09-06] MEDS ORDERED: Ketamine 50 MG/ML (10ML VIAL) ONE (14:04)
[2019-09-06] MEDS ORDERED: Midazolam HCl 2 mg/2 ml Vial ONE (14:04)
[2019-09-06] MEDS ORDERED: Propofol 1,000 MG/100 ML VIAL IV ONE (14:04)
[2019-09-06] MEDS ORDERED: DOPamine 400 MG/D5W 250 ML 250 ML ONE (15:12)
[2019-09-06] MEDS ORDERED: SUGAMMADEX SODIUM 200 MG/2 ML VIAL ONE (17:06)
[2019-09-06] MEDS ORDERED: Ketorolac Tromethamine 30 MG/ML VIAL IVP PRN (18:13)
[2019-09-06] MEDS ORDERED: HYDROcodone/Acetaminophen 5/325 mg Tablet PO PRN ×2 (18:15)
--- NOTE | 2019-09-06 20:32 | PDOC.HOSPP ---
- Subjective Encounter Date: 09/06/19 Encounter Time: 11:00 Subjective: no overnight events. ENdorses being midly nervous prior to the procudere so explained the procedure to her. Has no complaints. HR better controlled with cardizem and coreg. - Objective Vital Signs & Weight: Vital Signs (12 hours) Temp Pulse Resp BP Pulse Ox 09/06/19 18:02 97.4 F L 78 18 121/92 H 99 09/06/19 11:15 98.3 F 99 18 125/69 95 Weight Admit Weight 212 lb 12.8 oz Weight 214 lb 6.4 oz I&O: 09/05/19 09/06/19 09/07/19 06:59 06:59 06:59 Intake Total 2243 1800 2245 Output Total 1905 800 950 Balance 338 1000 1295 Result Diagrams: 09/06/19 04:08 09/06/19 04:08 Additional Labs: Accuchecks 09/06/19 09/06/19 09/06/19 18:17 10:48 05:43 POC Glucose 130 H 133 H 162 H 09/05/19 20:27 POC Glucose 197 H Hospitalist ROS - Review of Systems Constitutional: denies: fever, chills, sweats, weakness, malaise, other Respiratory: reports: shortness of breath. denies: cough, dry, hemoptysis, SOB with excertion, pleuritic pain, sputum, wheezing, other Cardiovascular: denies: chest pain, palpitations, orthopnea, paroxysmal noc. dyspnea, edema, light headedness, other Gastrointestinal: denies: nausea, vomiting, abdominal pain, diarrhea, constipation, melena, hematochezia, other Genitourinary: denies: dysuria, frequency, incontinence, hematuria, retention, other - Medication Medications: Active Medications Generic Name Dose Route Start Last Admin Trade Name Freq PRN Reason Stop Dose Admin Acetaminophen 650 mg 09/05/19 03:46 09/05/19 03:54 Tylenol PO 650 mg Q6H PRN Administration Pain Aspirin 81 mg 09/05/19 09:00 09/06/19 06:10 Ecotrin PO 81 mg DAILY BLANQUITA Administration Carvedilol 3.125 mg 09/05/19 17:00 09/06/19 18:55 Coreg PO 3.125 mg BID- BLANQUITA Administration Enoxaparin Sodium 100 mg 09/04/19 21:00 09/06/19 07:40 Lovenox SC Not Given 0900,2100 [facility] Diltiazem HCl 125 mg/ Sodium 125 mls @ 5 mls/hr 09/04/19 15:30 09/05/19 22:19 Chloride IVPB 125 mls INF BLANQUITA Administration Protocol Sodium Chloride 1,000 mls @ 70 mls/hr 09/04/19 18:30 09/06/19 12:48 Normal Saline 0.9% IV 1,000 mls .[id number] BLANQUITA Administration Magnesium Hydroxide 30 ml 09/04/19 19:34 09/05/19 22:26 Milk Of Magnesium PO 30 ml DAILY PRN Administration Constipation Saccharomyces Boulardii 250 mg 09/05/19 09:00 09/06/19 06:10 Florastor PO 250 mg DAILY BLANQUITA Administration Triamterene/HCTZ 1 tab 09/05/19 09:00 09/06/19 06:10 Maxzide-25 PO 1 tab DAILY BLANQUITA Administration - Exam General Appearance: NAD, awake alert Heart: no murmur, no gallops, irregular Heart - other findings: HR improved in 80-90 during encounter Respiratory: CTAB, no wheezes, no rales, no ronchi, normal chest expansion, no tachypnea, normal percussion Gastrointestinal: soft, non-tender, non-distended, normal bowel sounds, no palpable masses, no hepatomegaly, no splenomegaly, no bruit Extremities - other findings: nonpitting edema Psychiatric: normal affect, normal behavior, A&O x 3 Hosp A/P (1) New onset atrial flutter Code(s): I48.92 - UNSPECIFIED ATRIAL FLUTTER Status: Acute (2) Type 2 diabetes mellitus Status: Acute (3) Hypertension Code(s): I10 - ESSENTIAL (PRIMARY) HYPERTENSION Status: Acute (4) Polio Code(s): A80.9 - ACUTE POLIOMYELITIS, UNSPECIFIED Status: Acute - Plan (1) New onset atrial flutter Code(s): I48.92 - UNSPECIFIED ATRIAL FLUTTER Status: Acute (2) Type 2 diabetes mellitus Status: Acute (3) Hypertension Code(s): I10 - ESSENTIAL (PRIMARY) HYPERTENSION Status: Acute (4) Polio Code(s): A80.9 - ACUTE POLIOMYELITIS, UNSPECIFIED Status: Acute Plan: #new onset atrial flutter -continue cardizem; goal HR <110 or <85 if symptomatic; can increase to 7.5mg/ hr if above -pending EP ablation 09/05 #Type 2 DM -started mild sliding scale #HTN -continue home medicatiions disposition/PPx -full code per patient -DVT PPx: on lovenox for atiral flutter -GI PPx: not indication Expected LOS: 2 midnights
--- NOTE | 2019-09-06 21:00 | ECHO ---
DATE OF PROCEDURE: 09/06/19 REFERRING PHYSICIAN: Dr. Kate De Dios REASON FOR PROCEDURE: The patient is a 62-year-old female with prior history of polio syndrome, hypertension, diabetes who presents with newly found atrial flutter. Not anticoagulated prior. She is here for planned ablation procedure. KATHY is performed prior to the procedure to rule out intracardiac clots. PROCEDURE: The patient was provided general anesthesia for intubation due to decreased saturation on first attempt. She quickly resaturated with Ambu bag treatment and was intubated by anesthesia specialist. The standard transesophageal echocardiogram probe was placed within the esophagus without difficulty. Patient tolerated the procedure otherwise well. RESULTS: Left atrium is upper limits of normal in size about 3.9 cm in horizontal diameter. The left atrial appendage well visualized with good movement noted in the left atrial appendage and no clots were appreciated. Four out of four pulmonary veins were seen. The mitral valve has mild regurgitation. Interatrial septum appears to be lipomatous and free of defect. No ventricular septal defect noted either. The left ventricle is with moderate LVH but appears to have normla systolic function. Right sided chamber is nondilated. Trace tricuspid regurgitation seen. Right sided chambers are mildly dilated. Pericardial space with echo dense soft tissue likely fat pad noted. The aortic valve has three leaflets without regurgitation or stenosis. The visualized portion of ascending and descending aorta without aneurysm, dissection or atheroma. CONCLUSION: 1. No intracardiac clots. 2. Preserved left ventricular systolic function. 3. Mild to moderate left ventricular hypertrophy. 4. No significant valvular heart disease. 5. Fat pad in the pericardial space. PLAN: Proceed with the ablation. RUTH
[2019-09-07 04:25] LABS: Potassium 4.6 mmol/L (3.5-5.1)
[2019-09-07] MEDS: Sodium Chloride 0.9% 1,000 ML IV SCH (05:22)
--- NOTE | 2019-09-07 08:21 | CON ---
DATE OF CONSULTATION: 09/04/2019 HISTORY OF PRESENT ILLNESS: I am seeing Ms. 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 Newly found atrial flutter with rapid ventricular rates, likely typical isthmus dependent in morphology. a. Rapid ventricular rate is now better controlled with diltiazem drip. b. Anticoagulation initiated at this admission. 2. Preserved LVEF on echocardiogram on 08/25/2019 at 60% to 65%, moderately enlarged left atrium, mild MR and TR. 3. Morbid obesity. 4. Post-polio syndrome. 5. Type 2 diabetes. 6. Hypertension. ALLERGIES: SULFAMETHOXAZOLE-TRIMETHOPRIM. MEDICATIONS: At home included: 1. Loperamide. 2. Ibuprofen. 3. Arginine and glutamine. 4. Saccharomyces. 5. Glimepiride. 6. Diabetic Tussin. 7. Cyclobenzaprine. 8. Methyl salicylate. 9. Benadryl/diphenhydramine. 10. Aspirin. 11. Melatonin. 12. Magnesium. 13. Metformin. 14. Cetirizine. 15. Zinc. 16. Valsartan. 17. Ascorbic acid. 18. Tylenol. 19. Triamterene. 20. Multivitamin. 21. Amino acids. 22. Bismuth. 23. Nystatin. 24. Polyethylene glycol. SUBJECTIVE: Ms. Ibarra is here with symptoms of palpitations, dyspnea. [place] jail, she was noted to have rapid heartbeats as well. She was brought to the ER and she is noted to be in narrow complex tachycardia, revealed atrial flutter. Eventually, diltiazem IV was used to slow the rate down some. Now, she is feeling better with mild improvement in the heart rate. She denies angina. No fever, chills, or cough. No stroke-like symptoms. No neurological deficits. No PND or orthopnea. Rest of 12-point system otherwise unremarkable. PAST MEDICAL HISTORY: As above. SOCIAL HISTORY: The patient is in jail. Denies smoking, EtOH, or drug abuse. FAMILY HISTORY: Not contributory. She has a sister who helps with her decisions. REVIEW OF SYSTEMS: The patient is typically wheelchair-bound due to her post-polio syndrome and uses a brace for her legs. OBJECTIVE DATA: VITAL SIGNS: Blood pressure is 121/58, heart rate 63, respirations 16, and temperature 98 degrees Fahrenheit. GENERAL: Alert and oriented woman, in no apparent distress. NECK: Supple. Jugular veins not distended. CHEST: Coarse without crackles. HEART: Sounds are irregularly irregular. S1 and S2 are variable. No murmur or gallop. ABDOMEN: Benign. Bowel sounds positive. EXTREMITIES: Lower extremities without edema, clubbing, or cyanosis. MUSCULOSKELETAL: Reveal significant lower extremity deformities due to the post-polio syndrome and weakness noted on the lower extremity neuro exam. SKIN: With rash in the right lower abdominal girth. Marked obesity noted on abdomen. DIAGNOSTIC STUDIES: EKGs reviewed, initial EKG to narrow complex tachycardia with flutter waves underlying with ventricular rate of 172 beats per minute. Subsequent EKGs reveal atrial flutter with 4:1 AV conduction on August 25, 2019. QRS is 88 milliseconds, QTc 425 milliseconds. LABORATORY DATA: On the , white blood cell count 10.9, hemoglobin 12.8, platelet count is 372. Sodium 135, potassium 4, BUN is 47, creatinine 0.62. Troponin levels are 0.042, 0.023, 0.020. The BNP is 41.4. The echo as noted above. Chest x-ray from 09/03/2019 reveals cardiomegaly, vascular congestion, small effusion, bibasilar atelectasis. ASSESSMENT AND PLAN: Ms. Ibarra is a very pleasant 69-year-old woman with history of diabetes, hypertension, obesity, and post-polio syndrome, who presented with her newly found atrial flutter with rapid ventricular rate. Now, rates are better controlled and she had some improvement. Workup so far demonstrated preserved LV systolic function and minimal troponin rise, likely due to rapid rates. No acute WV suspected. We discussed the nature mechanism for atrial flutter, potential treatment options like continued rate control, KATHY guided cardioversion, or KATHY ablation was discussed. She has not completely decided on the treatment plan. She would like to discuss with her sister, but we detailed the potential risk of infection, bleeding, tamponade, recurrence, and strokes regarding the flutter ablation. again is highly recommended. We also discussed the anesthesia difficulty due to her obesity and post-polio syndrome. At this point, I agree with the current management. Continue diltiazem and anticoagulation is advised. We will discuss the plan further tomorrow once she had a chance to think it over with her sister. Thank you again for letting me to participate in the care of this patient. Job ID: [id number]
[2019-09-07] MEDS: Saccharomyces boulardii 250 MG CAP PO SCH (09:28)
[2019-09-07] MEDS: Carvedilol 3.125 MG TAB PO SCH ×2 (09:28→17:31)
[2019-09-07] MEDS: Aspirin 81 mg Enteric Coated Tablet PO SCH (09:28)
[2019-09-07] MEDS: Triamterene/Hydrochlorothiazide 37.5 mg/25 mg Tablet PO SCH (09:28)
[2019-09-07] MEDS: Enoxaparin Sodium 100 MG/ML SYRINGE SC SCH (09:31)
[2019-09-07] MEDS ORDERED: Furosemide 20 MG/2 ML VIAL SLOW IVP SCH (10:00)
--- NOTE | 2019-09-07 11:40 | OP ---
DATE OF PROCEDURE: 09/06/2019 PROCEDURE PERFORMED: Electrophysiology study and radiofrequency ablation. REASON FOR PROCEDURE: Ms. Ibarra is a 69-year-old female with history of obesity, hypertension, and post-polio syndrome, who presented with newly found atrial flutter, requiring diltiazem for rate control and dyspnea. KATHY prior to the procedure demonstrated no intracardiac clots. DESCRIPTION OF PROCEDURE: The patient received propofol and general anesthesia by Anesthesia specialist. The right femoral venous area was prepped, draped, and anesthetized using subcutaneous lidocaine under ultrasound guidance. It was cannulated x2, and two 8-Mongolian short sheaths were introduced, through which a [employer] SFST ablation catheter was advanced to the right atrium and 3D map for right atrium including His bundle, CS, and the cavotricuspid isthmus area was obtained. The Decapolar catheter was advanced to the right atrium, His bundle, CS, and right ventricular position. Pacing, mapping, and recording were also performed in each location with the following findings. The baseline rhythm was atrial flutter with cycle length of 240 milliseconds. It appears to be typical isthmus dependent with proximal to distal CS activation. The proximal CS pacing entering the tachycardia and the post pacing interval was similar to the tachycardia cycle length. Distal CS pacing was demonstrating longer post pacing interval. The cavotricuspid isthmus ablation performed in the cavotricuspid isthmus area, during which activation sequence change was noted. Different flutter cycle length was also seen suggestive of different circuits. At this point, cavotricuspid isthmus overdrive pacing demonstrated prolonged post pacing interval suggestive of CTI area, it was not part of second flutter circuit. Following that, additional overdrive pace maneuvers converted the patient to atrial fibrillation, which was cardioverted. At this point, proximal CS pacing was delivered, during which further lesions were paced to prolong the transisthmus time up to 120 milliseconds. Multiple lesions were delivered and we were able to prolong the transisthmus time up to 120 milliseconds. Following that, burst atrial pacing maneuvers were performed from the RV ablation catheter as well as some in the CS pacing left atrium. At 200 millisecond cycle length, we were still able to reproduce atypical atrial flutter, but not the baseline typical isthmus dependent flutter appearing morphology. The EP study at the end of the case demonstrated QRS 71 milliseconds, QT 340 milliseconds, HV 48 milliseconds. No VA conduction was seen. AV Wenckebach was noted at about 600 milliseconds while still on diltiazem. AV ofelia ERP was 600/260 milliseconds. Total of mccord, 33. Total duration was 1177 seconds. CONCLUSION: 1. Typical isthmus dependent atrial flutter at baseline. 2. Cavotricuspid isthmus ablation performed. 3. Multi-circuit atrial arrhythmias noted, inducible pre and post ablation. 4. Atrial fibrillation was transiently seen and cardioverted. 5. Normal AV ofelia and His-Purkinje function with diltiazem effect still noted. 6. No change in cardiac silhouette pre and post ablation. Job ID: [id number]
--- NOTE | 2019-09-07 12:02 | RAD ---
Exam: Chest one view COMPARISON: 09/03/2019 HISTORY: Shortness of breath. Status post atrial fibrillation RFA yesterday FINDINGS: Persistent cardia megaly. There are diffuse interstitial and alveolar opacities. Bilateral pleural effusions. No pneumothorax IMPRESSION: Presumed congestive heart failure. Correlate clinically.
--- NOTE | 2019-09-07 12:19 | PDOC.EP ---
- Subjective Date: 09/07/19 Time: 12:17 Interval History: follow up after KATHY/CTI flutter ablation on 09/05. Voices no post operative or rhythm complaints today. - Review of Systems Constitutional: denies: chills, fever, malaise, sweats, weakness, other Respiratory: denies: cough, dry, hemoptysis, pleuritic pain, shortness of breath Cardiology: denies: chest pain, edema, heart racing, light headedness, passing out - Objective Allergies/Adverse Reactions: Allergies Allergy/AdvReac Type Severity Reaction Status Date / Time sulfamethoxazole Allergy Verified 09/04/19 14:45 [From Bactrim] trimethoprim [From Bactrim] Allergy Verified 09/04/19 14:45 Current Medications Acetaminophen (Tylenol) 650 mg PO Q6H PRN PRN Reason: Pain Last Admin: 09/05/19 03:54 Dose: 650 mg Hydrocodone Bitart/Acetaminophen ([place] 5/325) 1 tab PO Q4H PRN PRN Reason: Mild Pain Hydrocodone Bitart/Acetaminophen ([place] 5/325) 2 tab PO Q4H PRN PRN Reason: For Moderate Pain Apixaban (Eliquis) 5 mg PO BID [facility] Aspirin (Ecotrin) 81 mg PO DAILY [facility] Last Admin: 09/07/19 09:28 Dose: 81 mg Carvedilol (Coreg) 3.125 mg PO BID-[facility] Last Admin: 09/07/19 09:28 Dose: 3.125 mg Cyclobenzaprine HCl (Flexeril) 5 mg PO Q8H PRN PRN Reason: Muscle Spasm Diphenhydramine HCl (Benadryl) 50 mg PO Q6H PRN PRN Reason: .Itching Furosemide (Lasix) 20 mg SLOW IVP 0600,1400 [facility] Insulin Human Lispro (Humalog) 0 units SC .MILD SLIDING SCALE PRN PRN Reason: Mild Correctional Scale Ketorolac Tromethamine (Toradol) 30 mg IVP Q6H PRN PRN Reason: Pain Stop: 09/11/19 18:14 Magnesium Hydroxide (Milk Of Magnesium) 30 ml PO DAILY PRN PRN Reason: Constipation Last Admin: 09/05/19 22:26 Dose: 30 ml Melatonin (Melatonin) 3 mg PO HS PRN PRN Reason: Insomnia Saccharomyces Boulardii (Florastor) 250 mg PO DAILY [facility] Last Admin: 09/07/19 09:28 Dose: 250 mg Triamterene/HCTZ (Maxzide-25) 1 tab PO DAILY [facility] Last Admin: 09/07/19 09:28 Dose: 1 tab Vital Signs & Weight: Vital Signs Temp Pulse Resp BP Pulse Ox 09/07/19 11:21 98.0 F 87 18 127/61 95 09/07/19 08:15 98.0 F 88 20 136/70 94 L 09/07/19 02:52 96.8 F L 89 18 117/66 93 L Admit Weight 212 lb 12.8 oz Weight 214 lb 6.4 oz I/O: I/O 09/06/19 09/07/19 09/08/19 06:59 06:59 06:59 Intake Total 1800 3085 Output Total 800 1200 Balance 1000 1885 - Quality Measures Condition: Atrial Fibrillation/Flutter (hx or current) (lovenox) CV meds: Eliquis: Yes - Physical Exam General: alert & oriented x3, appears well, no apparent distress, speech clear, affect appropriate HEENT: mucus membranes moist, normocephaly Neck: supple neck, midline trachea, no lymphadenopathy, JVD/HJR Cardiology: regular rate and rhythm, no murmur, PMI nondisplaced Lungs: wheezes. negative: no rales, no rhonchi Neurology: cranial nerve 2-12 intact (at baseline with prexisting paraplegia), grossly intact Abdomen: unremarkable, active bowel sounds, no pulsations/bruits - Labs Result Diagrams: 09/06/19 04:08 09/07/19 03:57 - EKG Interpretation EKG Method: Telemetry EKG shows: Sinus rhythm - Assessment/Plan Assessment/Plan: 1. Atrial arrhythmias -s/p CTI flutter ablation -multiple left atrial circuits seen during EPS requiring DCCV. -on Eliquis 5mg BID for OAC 2. Obesity 3. Post polio paraplegia 4. Diabetes 5. Hypertension 6. Preserved EF 55-60% - echo showed moderately enlarged left atrium Continue Eliquis long-term and beta blockers. Monitor for recurrent AF. Short of breath and appears to have some fluid overload by exam. Minimal output from AM lasix. Repeat limited echo to r/o pericardial effusion although physical exam findings do not point to this thus far. Consider AAD therapy initiation of multaq or flecainide if symptomatic recurrence of AF is seen. EPS/RFA CONCLUSION: 1. Typical isthmus dependent atrial flutter at baseline. 2. Cavotricuspid isthmus ablation performed. 3. Multi-circuit atrial arrhythmias noted, inducible pre and post ablation. 4. Atrial fibrillation was transiently seen and cardioverted. 5. Normal AV ofelia and His-Purkinje function with diltiazem effect still noted. 6. No change in cardiac silhouette pre and post ablation.
--- NOTE | 2019-09-07 13:53 | PDOC.CPN ---
- Subjective Date: 09/07/19 Time: 14:03 Interval history: The pt seen and examined. No overnight events. She has had SOB since CTI RFA yesterday; - Objective Allergies/Adverse Reactions: Allergies Allergy/AdvReac Type Severity Reaction Status Date / Time sulfamethoxazole Allergy Verified 09/04/19 14:45 [From Bactrim] trimethoprim [From Bactrim] Allergy Verified 09/04/19 14:45 Visit Medications: Current Medications Acetaminophen (Tylenol) 650 mg PO Q6H PRN PRN Reason: Pain Last Admin: 09/05/19 03:54 Dose: 650 mg Hydrocodone Bitart/Acetaminophen ([place] 5/325) 1 tab PO Q4H PRN PRN Reason: Mild Pain Hydrocodone Bitart/Acetaminophen ([place] 5/325) 2 tab PO Q4H PRN PRN Reason: For Moderate Pain Apixaban (Eliquis) 5 mg PO BID [facility] Aspirin (Ecotrin) 81 mg PO DAILY [facility] Last Admin: 09/07/19 09:28 Dose: 81 mg Carvedilol (Coreg) 3.125 mg PO BID-[facility] Last Admin: 09/07/19 09:28 Dose: 3.125 mg Cyclobenzaprine HCl (Flexeril) 5 mg PO Q8H PRN PRN Reason: Muscle Spasm Diphenhydramine HCl (Benadryl) 50 mg PO Q6H PRN PRN Reason: .Itching Furosemide (Lasix) 20 mg SLOW IVP 0600,1400 [facility] Insulin Human Lispro (Humalog) 0 units SC .MILD SLIDING SCALE PRN PRN Reason: Mild Correctional Scale Ketorolac Tromethamine (Toradol) 30 mg IVP Q6H PRN PRN Reason: Pain Stop: 09/11/19 18:14 Magnesium Hydroxide (Milk Of Magnesium) 30 ml PO DAILY PRN PRN Reason: Constipation Last Admin: 09/05/19 22:26 Dose: 30 ml Melatonin (Melatonin) 3 mg PO HS PRN PRN Reason: Insomnia Saccharomyces Boulardii (Florastor) 250 mg PO DAILY [facility] Last Admin: 09/07/19 09:28 Dose: 250 mg Triamterene/HCTZ (Maxzide-25) 1 tab PO DAILY [facility] Last Admin: 09/07/19 09:28 Dose: 1 tab Vital Signs & Weight: Vital Signs Temp Pulse Resp BP Pulse Ox 09/07/19 11:21 98.0 F 87 18 127/61 95 09/07/19 08:15 98.0 F 88 20 136/70 94 L 09/07/19 02:52 96.8 F L 89 18 117/66 93 L Admit Weight 212 lb 12.8 oz Weight 214 lb 6.4 oz - Physical Exam General: alert & oriented x3 HEENT: mucus membranes moist Neck: supple neck Cardiac: regular rate and rhythm, S1/S2 Lungs: clear to auscultation - Labs Result Diagrams: 09/06/19 04:08 09/07/19 03:57 Troponin/CKMB CK-MB (CK-2) 1.2 ng/mL (0-6.6) 09/03/19 22:24 Troponin I 0.020 ng/mL (< 0.028) 09/04/19 05:18 - Telemetry Sinus rhythms and dysrhythmias: sinus rhythm - Assessment/Plan Assessment/Plan: 1. New onset typical Atrial flutter with s/p CTI flutter RFA on 09/06/2019 - s/ p multiple left atrial circuits seen during EPS requiring DCCV per Dr Gillespie; On Coreg 3.125mg BID and Eliquis;Echo today for complaining of SOB since the procedure. 2. HTN - stable 3. DM type 2 - 4. Frequent UTIs 5. Post polio paraplegia - 6. Obese - strongly recommend to watch her diet. MAR reviewed Pt. seen and eval. by me. I agree with the A/P by the DRUM OPERATOR.She does c/o of SOB post procedure. A repeat echo does not indicate a pericardial effusion. She has been given IV lasix but no significant increase in the u/O. Will try one dose on zaroxolyn. Chest: bilateral wheeze. RRR, 1+ LE edema. gjm
[2019-09-07] MEDS: Furosemide 20 MG/2 ML VIAL SLOW IVP SCH (14:00)
--- NOTE | 2019-09-07 15:55 | EKG ---
Test Reason : Blood Pressure : / mmHG Vent. Rate : 080 BPM Atrial Rate : 080 BPM P-R Int : 192 ms QRS Dur : 090 ms QT Int : 420 ms P-R-T Axes : 029 000 -33 degrees QTc Int : 484 ms Normal sinus rhythm Low voltage QRS Nonspecific T wave abnormality Abnormal ECG When compared with ECG of 04-SEP-2019 10:45, Sinus rhythm has replaced Atrial fibrillation QT has lengthened Confirmed by TUNDE CARLIN, SSang ([id number]) on 09/07/2019 3:54:40 PM Referred By: GURJIT Confirmed By:DR. Daniel GRIFFITHS MD
--- NOTE | 2019-09-07 15:58 | EKG ---
Test Reason : Blood Pressure : / mmHG Vent. Rate : 090 BPM Atrial Rate : 090 BPM P-R Int : 180 ms QRS Dur : 092 ms QT Int : 386 ms P-R-T Axes : 080 002 094 degrees QTc Int : 472 ms Normal sinus rhythm Low voltage QRS Incomplete right bundle branch block Nonspecific T wave abnormality Prolonged QT Abnormal ECG When compared with ECG of 06-SEP-2019 17:39, (Unconfirmed) No significant change was found Confirmed by TUNDE CARLIN, SSang ([id number]) on 09/07/2019 3:58:00 PM Referred By: JUANCARLOS Confirmed By:DR. Daniel GRIFFITHS MD
[2019-09-07] MEDS ORDERED: Metolazone 5 MG TAB PO SCH (18:00)
[2019-09-07] MEDS: Apixaban 5 MG TAB PO SCH (20:50)
--- NOTE | 2019-09-08 02:35 | PDOC.HOSPP ---
- Subjective Encounter Date: 09/07/19 Encounter Time: 09:00 Subjective: overnight short of breath since the ablation. Has no other complaints and denies chest or pleuritic pain - Objective Vital Signs & Weight: Vital Signs (12 hours) Temp Pulse Resp BP Pulse Ox 09/07/19 20:00 98 F 88 18 121/62 95 09/07/19 15:31 98.0 F 89 20 119/58 L 97 Weight Admit Weight 212 lb 12.8 oz Weight 214 lb 6.4 oz I&O: 09/06/19 09/07/19 09/08/19 06:59 06:59 06:59 Intake Total 1800 3085 720 Output Total 800 1200 1150 Balance 1000 1885 -430 Result Diagrams: 09/06/19 04:08 09/07/19 03:57 Additional Labs: Accuchecks 09/07/19 09/07/19 09/07/19 20:38 16:57 10:58 POC Glucose 164 H 134 H 138 H 09/07/19 05:59 POC Glucose 128 H Hospitalist ROS - Review of Systems Constitutional: denies: fever, chills, sweats, weakness, malaise, other Respiratory: reports: shortness of breath. denies: cough, dry, hemoptysis, SOB with excertion, pleuritic pain, sputum, wheezing, other Cardiovascular: denies: chest pain, palpitations, orthopnea, paroxysmal noc. dyspnea, edema, light headedness, other Gastrointestinal: denies: nausea, vomiting, abdominal pain, diarrhea, constipation, melena, hematochezia, other Genitourinary: denies: dysuria, frequency, incontinence, hematuria, retention, other - Medication Medications: Active Medications Generic Name Dose Route Start Last Admin Trade Name Freq PRN Reason Stop Dose Admin Acetaminophen 650 mg 09/05/19 03:46 09/05/19 03:54 Tylenol PO 650 mg Q6H PRN Administration Pain Apixaban 5 mg 09/07/19 21:00 09/07/19 20:50 Eliquis PO 5 mg BID BLANQUITA Administration Carvedilol 3.125 mg 09/05/19 17:00 09/07/19 17:31 Coreg PO 3.125 mg BID-[facility]QUITA Administration Furosemide 20 mg 09/07/19 14:00 09/07/19 14:00 Lasix SLOW IVP 20 mg 0600,1400 BLANQUITA Administration Magnesium Hydroxide 30 ml 09/04/19 19:34 09/05/19 22:26 Milk Of Magnesium PO 30 ml DAILY PRN Administration Constipation Saccharomyces Boulardii 250 mg 09/05/19 09:00 09/07/19 09:28 Florastor PO 250 mg DAILY [facility]ANQUITA Administration Triamterene/HCTZ 1 tab 09/05/19 09:00 09/07/19 09:28 Maxzide-25 PO 1 tab DAILY BLANQUITA Administration - Exam General Appearance: NAD, awake alert Heart: RRR, no murmur, no gallops, no rubs, normal peripheral pulses Respiratory: CTAB, no wheezes, no rales, no ronchi, normal chest expansion, tachypneic Gastrointestinal: soft, non-tender, non-distended, normal bowel sounds, no palpable masses, no hepatomegaly, no splenomegaly, no bruit Extremities: 1+ LE edema Extremities - other findings: pitting edema Neurological: cranial nerve grossly intact, no weakness, no new deficit Psychiatric: normal affect, normal behavior, A&O x 3 Hosp A/P (1) New onset atrial flutter Code(s): I48.92 - UNSPECIFIED ATRIAL FLUTTER Status: Acute (2) Type 2 diabetes mellitus Status: Acute (3) Hypertension Code(s): I10 - ESSENTIAL (PRIMARY) HYPERTENSION Status: Acute (4) Polio Code(s): A80.9 - ACUTE POLIOMYELITIS, UNSPECIFIED Status: Acute - Plan (1) New onset atrial flutter Code(s): I48.92 - UNSPECIFIED ATRIAL FLUTTER Status: Acute (2) Type 2 diabetes mellitus Status: Acute (3) Hypertension Code(s): I10 - ESSENTIAL (PRIMARY) HYPERTENSION Status: Acute (4) Polio Code(s): A80.9 - ACUTE POLIOMYELITIS, UNSPECIFIED Status: Acute Plan: #new onset atrial flutter -continue cardizem; goal HR <110 or <85 if symptomatic; can increase to 7.5mg/ hr if above -ablation 09/05 -short of breath s/p ablation (09/06); KATHY showed no thrombus; Tele showing sinus rhythm -EKG to detect arrhythmias, blocks; troponin -ECHO #Type 2 DM -started mild sliding scale #HTN -continue home medicatiions disposition/PPx -full code per patient -DVT PPx: on lovenox for atiral flutter -GI PPx: not indication Expected LOS: 2 midnights
[2019-09-08] MEDS: Furosemide 20 MG/2 ML VIAL SLOW IVP SCH ×2 (05:42→14:22)
[2019-09-08] MEDS: Saccharomyces boulardii 250 MG CAP PO SCH (09:13)
[2019-09-08] MEDS: Triamterene/Hydrochlorothiazide 37.5 mg/25 mg Tablet PO SCH (09:13)
[2019-09-08] MEDS: Carvedilol 3.125 MG TAB PO SCH ×2 (09:13→17:22)
[2019-09-08] MEDS: Apixaban 5 MG TAB PO SCH ×2 (09:13→20:34)
[2019-09-08 09:25] LABS: Hemoglobin 10.7 g/dL (12.0-16.0); Platelet Count 338 thou/uL (130-400)
--- NOTE | 2019-09-08 10:11 | EKG ---
Test Reason : Blood Pressure : / mmHG Vent. Rate : 182 BPM Atrial Rate : 197 BPM P-R Int : 000 ms QRS Dur : 088 ms QT Int : 258 ms P-R-T Axes : 000 004 063 degrees QTc Int : 448 ms Supraventricular tachycardia Low voltage QRS Nonspecific ST and T wave abnormality Abnormal ECG Confirmed by ANDRESSA TILLMAN ([id number]), commissioning editor PRESLEY BONILLA ([id number]) on 09/08/2019 10:11:28 AM Referred By: Confirmed By:ANDRESSA TILLMAN
--- NOTE | 2019-09-08 10:12 | EKG ---
Test Reason : Blood Pressure : / mmHG Vent. Rate : 131 BPM Atrial Rate : 064 BPM P-R Int : 000 ms QRS Dur : 092 ms QT Int : 380 ms P-R-T Axes : 000 -03 052 degrees QTc Int : 561 ms Supraventricular tachycardia Low voltage QRS Incomplete right bundle branch block Borderline ECG Confirmed by ANDRESSA TILLMAN ([id number]), editor sound PRESLEY BONILLA ([id number]) on 09/08/2019 10:11:37 AM Referred By: Confirmed By:ANDRESSA TILLMAN
--- NOTE | 2019-09-08 10:31 | PDOC.HOSPP ---
- Subjective Encounter Date: 09/08/19 Encounter Time: 10:27 Subjective: Still feeling a little SOB. Has cough. Feels more SOB than she did prior to the procedure. - Objective Vital Signs & Weight: Vital Signs (12 hours) Temp Pulse Resp BP Pulse Ox 09/08/19 07:26 96 09/08/19 07:23 98.0 F 91 20 140/71 96 09/08/19 03:24 98 F 88 20 131/80 95 Weight Admit Weight 212 lb 12.8 oz Weight 214 lb 6.4 oz I&O: 09/07/19 09/08/19 09/09/19 06:59 06:59 06:59 Intake Total 3085 960 Output Total 1200 1500 Balance 1885 -540 Result Diagrams: 09/08/19 09:05 09/08/19 09:05 Additional Labs: Accuchecks 09/08/19 09/07/19 09/07/19 05:50 20:38 16:57 POC Glucose 147 H 164 H 134 H 09/07/19 10:58 POC Glucose 138 H Hospitalist ROS - Medication Medications: Active Medications Generic Name Dose Route Start Last Admin Trade Name Freq PRN Reason Stop Dose Admin Acetaminophen 650 mg 09/05/19 03:46 09/05/19 03:54 Tylenol PO 650 mg Q6H PRN Administration Pain Apixaban 5 mg 09/07/19 21:00 09/08/19 09:13 Eliquis PO 5 mg BID [facility] Administration Carvedilol 3.125 mg 09/05/19 17:00 09/08/19 09:13 Coreg PO 3.125 mg BID-[facility] Administration Magnesium Hydroxide 30 ml 09/04/19 19:34 09/05/19 22:26 Milk Of Magnesium PO 30 ml DAILY PRN Administration Constipation Saccharomyces Boulardii 250 mg 09/05/19 09:00 09/08/19 09:13 Florastor PO 250 mg DAILY [facility] Administration Triamterene/HCTZ 1 tab 09/05/19 09:00 09/08/19 09:13 Maxzide-25 PO 1 tab DAILY [facility] Administration - Exam General Appearance: NAD, awake alert General - other findings: Obese. Heart: RRR, no murmur, no gallops, no rubs, normal peripheral pulses Respiratory: rales (Bilateral.), wheezes (Modest, bilateral, expiratory.) Gastrointestinal: soft, non-tender, non-distended, normal bowel sounds, no palpable masses, no hepatomegaly, no splenomegaly, no bruit Extremities: no cyanosis, no clubbing, no edema Skin: normal turgor Psychiatric: normal affect, normal behavior, A&O x 3 Hosp A/P (1) Post-polio syndrome Code(s): G14 - POSTPOLIO SYNDROME Status: Acute (2) Acute combined systolic (congestive) and diastolic (congestive) heart failure Code(s): I50.41 - ACUTE COMBINED SYSTOLIC AND DIASTOLIC (CONGESTIVE) HRT FAIL Status: Acute (3) Morbid obesity with BMI of 40.0-44.9, adult Code(s): E66.01 - MORBID (SEVERE) OBESITY DUE TO EXCESS CALORIES; Z68.41 - BODY MASS INDEX (BMI) 40.0-44.9, ADULT Status: Acute (4) Hypertension Code(s): I10 - ESSENTIAL (PRIMARY) HYPERTENSION Status: Acute (5) New onset atrial flutter Code(s): I48.92 - UNSPECIFIED ATRIAL FLUTTER Status: Acute (6) Type 2 diabetes mellitus Status: Acute (7) Acute respiratory failure with hypoxia Code(s): J96.01 - ACUTE RESPIRATORY FAILURE WITH HYPOXIA Status: Acute - Plan Resp Failure: Hypoxia requiring oxygen. Trialing room air now. Secondary to CHF per CXR fro 09/06. Atrial Flutter with RVR: S/P ablation. Converted to NSR. On anticoagulation for inducible afib. Continue rate control with BB. CHF: Preserved EF. Secondary to tachycardia, DD. On IV lasix. Modest diuresis. DM: Well controlled. HTN: Well controlled.
[2019-09-08] MEDS: HumaLOG 300 UNITS/3 ML VIAL SC PRN ×2 (14:22→17:22)
[2019-09-09] MEDS: Furosemide 20 MG/2 ML VIAL SLOW IVP SCH ×2 (05:28→14:08)
--- NOTE | 2019-09-09 08:25 | RAD ---
PORTABLE CHEST: Date: 09/09/2019 HISTORY: Cough, hypoxia. COMPARISON: 09/07/2019. FINDINGS: Heart size is enlarged. Pulmonary vessels remain mildly engorged, slightly less prominent than on the prior examination. More focal parenchymal lung change seen in the right upper lobe. IMPRESSION: Cardiomegaly. Mild vascular engorgement and some of the interstitial changes appear slightly improved . There does appear to be slightly more confluent possible pneumonic process in the right upper lobe. Overall findings are fairly stable. POS: TPC
[2019-09-09] MEDS: Saccharomyces boulardii 250 MG CAP PO SCH (09:09)
[2019-09-09] MEDS: Apixaban 5 MG TAB PO SCH ×2 (09:09→20:51)
[2019-09-09] MEDS: Milk Of Magnesia 30 ML UDCUP PO PRN (09:09)
[2019-09-09] MEDS: Triamterene/Hydrochlorothiazide 37.5 mg/25 mg Tablet PO SCH (09:09)
[2019-09-09] MEDS: Carvedilol 3.125 MG TAB PO SCH ×2 (09:09→17:16)
--- NOTE | 2019-09-09 09:27 | PDOC.HOSPP ---
- Subjective Encounter Date: 09/09/19 Encounter Time: 09:25 Subjective: Feeling a little better. Breathing a little better. Has cough that is "wet" but not productive. - Objective Vital Signs & Weight: Vital Signs (12 hours) Temp Pulse Resp BP Pulse Ox 09/09/19 08:06 95 09/09/19 07:54 98.2 F 97 18 120/59 L 95 09/09/19 04:00 98.4 F 88 20 115/74 96 Weight Admit Weight 212 lb 12.8 oz Weight 214 lb 6.4 oz I&O: 09/08/19 09/09/19 09/10/19 06:59 06:59 06:59 Intake Total 960 960 Output Total 1500 2000 Balance -540 -1040 Result Diagrams: 09/08/19 09:05 09/08/19 09:05 Additional Labs: Accuchecks 09/09/19 09/08/19 09/08/19 06:04 20:27 17:17 POC Glucose 149 H 197 H 195 H 09/08/19 10:37 POC Glucose 256 H Hospitalist ROS - Medication Medications: Active Medications Generic Name Dose Route Start Last Admin Trade Name Freq PRN Reason Stop Dose Admin Acetaminophen 650 mg 09/05/19 03:46 09/05/19 03:54 Tylenol PO 650 mg Q6H PRN Administration Pain Apixaban 5 mg 09/07/19 21:00 09/09/19 09:09 Eliquis PO 5 mg BID [facility] Administration Carvedilol 3.125 mg 09/05/19 17:00 09/09/19 09:09 Coreg PO 3.125 mg BID-WM [facility] Administration Furosemide 40 mg 09/08/19 14:00 09/09/19 05:28 Lasix SLOW IVP 40 mg 0600,1400 BLANQUITA Administration Insulin Human Lispro 0 units 09/04/19 18:02 09/08/19 17:22 Humalog SC 2 unit .MILD SLIDING SCALE PRN Administration Mild Correctional Scale Magnesium Hydroxide 30 ml 09/04/19 19:34 09/09/19 09:09 Milk Of Magnesium PO 30 ml DAILY PRN Administration Constipation Saccharomyces Boulardii 250 mg 09/05/19 09:00 09/09/19 09:09 Florastor PO 250 mg DAILY [facility]ANQUITA Administration Triamterene/HCTZ 1 tab 09/05/19 09:00 09/09/19 09:09 Maxzide-25 PO 1 tab DAILY BLANQUITA Administration - Exam General Appearance: NAD, awake alert Heart: RRR, no murmur, no gallops, no rubs, normal peripheral pulses Respiratory: rales (mild, bilateral.), wheezes (Mild, expiratory) Gastrointestinal: soft, non-tender, non-distended, normal bowel sounds, no palpable masses, no hepatomegaly, no splenomegaly, no bruit Extremities: no cyanosis, no clubbing, no edema Musculoskeletal: generalized weakness Psychiatric: normal affect, normal behavior, A&O x 3 Hosp A/P (1) Acute combined systolic (congestive) and diastolic (congestive) heart failure Code(s): I50.41 - ACUTE COMBINED SYSTOLIC AND DIASTOLIC (CONGESTIVE) HRT FAIL Status: Acute (2) Morbid obesity with BMI of 40.0-44.9, adult Code(s): E66.01 - MORBID (SEVERE) OBESITY DUE TO EXCESS CALORIES; Z68.41 - BODY MASS INDEX (BMI) 40.0-44.9, ADULT Status: Acute (3) Hypertension Code(s): I10 - ESSENTIAL (PRIMARY) HYPERTENSION Status: Acute (4) New onset atrial flutter Code(s): I48.92 - UNSPECIFIED ATRIAL FLUTTER Status: Acute (5) Type 2 diabetes mellitus Status: Acute (6) Acute respiratory failure with hypoxia Code(s): J96.01 - ACUTE RESPIRATORY FAILURE WITH HYPOXIA Status: Acute (7) Post-polio syndrome Code(s): G14 - POSTPOLIO SYNDROME Status: Acute (8) Pneumonia Code(s): J18.9 - PNEUMONIA, UNSPECIFIED ORGANISM Status: Acute - Plan Resp Failure: Hypoxia improved. Room air sats are good. CXR shows some improvement, but concern for possible early pneumonia. Continue diuresis today. Repeat CXR in am. Atrial Flutter with RVR: S/P ablation. Converted to NSR and now back in aflutter with rate controlled. On anticoagulation for inducible afib. Continue rate control with BB. Cardiology aware. CHF: Preserved EF. Secondary to tachycardia, DD. On IV lasix. Modest diuresis. Appears some better. Continue IV Lasix. DM: Well controlled. HTN: Well controlled. Possible pneumonia: On CXR Start oral omnicef. Really needs to be mobilized more. Discussed with nurse. She has not had PT in a few days. Will try to get that today. Adding guaifenesin. Post-polio syndrome: Generalized debility. Increase activity with PT.
[2019-09-09] MEDS ORDERED: Cefdinir 300 MG CAP PO SCH (09:30)
[2019-09-09] MEDS ORDERED: Potassium Chloride 20 MEQ TAB PO SCH (09:45)
[2019-09-09] MEDS: HumaLOG 300 UNITS/3 ML VIAL SC PRN ×2 (12:01→17:15)
[2019-09-09] MEDS: guaiFENesin ER 600 MG TAB PO SCH (20:51)
[2019-09-09] MEDS: Cefdinir 300 MG CAP PO SCH (20:51)
[2019-09-10 04:43] LABS: Hemoglobin 11.3 g/dL (12.0-16.0); MDiff Complete? YES; Mean Corpuscular HGB CONC 30.4 g/dL (32.0-36.0); Mean Corpuscular Hemoglobin 26.7 pg (27.0-31.0); Mean Platelet Volume 8.3 fL (7.4-10.4); Platelet Count 272 thou/uL (130-400); RBC Distribution Width 14.6 % (11.5-14.5); Red Blood Cell (RBC) Count 4.25 mill/uL (4.20-5.40); White Blood Cell (WBC) Count 6.8 thou/uL (4.8-10.8)
[2019-09-10 04:44] LABS: Eosinophils 4 % (0-10); Lymphocytes 28 % (21-51); Monocytes 7 % (0-10); Neutrophil 60 % (42-75); Platelet Morphology Comment Appears Adequate
[2019-09-10 04:50] LABS: Anion Gap 14 mmol/L (10-20); BUN (Urea Nitrogen) 21 mg/dL (9.8-20.1); Calc. Creatinine Clearance 147 mL/min (70-130); Calcium 9.3 mg/dL (7.8-10.44); Carbon Dioxide 32 mmol/L (23-31); Chloride 98 mmol/L (98-107); Estimated GFR-MDRD Greater than 90; Glucose 152 mg/dL (80-115); Potassium 4.3 mmol/L (3.5-5.1); Sodium 140 mmol/L (136-145)
[2019-09-10] MEDS: Furosemide 20 MG/2 ML VIAL SLOW IVP SCH ×2 (06:12→14:38)
--- NOTE | 2019-09-10 08:12 | RAD ---
Exam: Chest one view HISTORY: Congestive heart failure Comparison: 09/09/2019 FINDINGS: Cardiac silhouette:Cardiomegaly. Aorta: Unremarkable Pulmonary vessels: Mildly prominent Costophrenic angles: Small bilateral pleural effusions LUNGS: Persistent scattered interstitial and alveolar opacities. Pneumothorax: None Osseous abnormalities: None IMPRESSION: Persistent congestive heart failure.
[2019-09-10] MEDS: guaiFENesin ER 600 MG TAB PO SCH ×2 (09:20→21:03)
[2019-09-10] MEDS: Cefdinir 300 MG CAP PO SCH ×2 (09:20→21:03)
[2019-09-10] MEDS: Apixaban 5 MG TAB PO SCH ×2 (09:20→21:03)
[2019-09-10] MEDS: Saccharomyces boulardii 250 MG CAP PO SCH (09:20)
--- NOTE | 2019-09-10 10:13 | PDOC.CPN ---
- Subjective Date: 09/10/19 Time: 08:00 Interval history: The pt seen and examined. No overnight events. No cardiac complaints. - Objective Allergies/Adverse Reactions: Allergies Allergy/AdvReac Type Severity Reaction Status Date / Time sulfamethoxazole Allergy Verified 09/08/19 17:33 [From Bactrim] trimethoprim [From Bactrim] Allergy Verified 09/08/19 17:33 Visit Medications: Current Medications Acetaminophen (Tylenol) 650 mg PO Q6H PRN PRN Reason: Pain Last Admin: 09/05/19 03:54 Dose: 650 mg Hydrocodone Bitart/Acetaminophen ([place] 5/325) 1 tab PO Q4H PRN PRN Reason: Mild Pain Hydrocodone Bitart/Acetaminophen ([place] 5/325) 2 tab PO Q4H PRN PRN Reason: For Moderate Pain Apixaban (Eliquis) 5 mg PO BID [facility] Last Admin: 09/10/19 09:20 Dose: 5 mg Carvedilol (Coreg) 3.125 mg PO BID-[facility] Last Admin: 09/09/19 17:16 Dose: 3.125 mg Cefdinir (Omnicef) 300 mg PO BID [facility] Last Admin: 09/10/19 09:20 Dose: 300 mg Cyclobenzaprine HCl (Flexeril) 5 mg PO Q8H PRN PRN Reason: Muscle Spasm Diphenhydramine HCl (Benadryl) 50 mg PO Q6H PRN PRN Reason: .Itching Furosemide (Lasix) 40 mg SLOW IVP 0600,1400 [facility] Last Admin: 09/10/19 06:12 Dose: 40 mg Guaifenesin (Mucinex) 600 mg PO Q12HR [facility] Last Admin: 09/10/19 09:20 Dose: 600 mg Insulin Human Lispro (Humalog) 0 units SC .MILD SLIDING SCALE PRN PRN Reason: Mild Correctional Scale Last Admin: 09/09/19 17:15 Dose: 2 unit Ketorolac Tromethamine (Toradol) 30 mg IVP Q6H PRN PRN Reason: Pain Stop: 09/11/19 18:14 Magnesium Hydroxide (Milk Of Magnesium) 30 ml PO DAILY PRN PRN Reason: Constipation Last Admin: 09/09/19 09:09 Dose: 30 ml Melatonin (Melatonin) 3 mg PO HS PRN PRN Reason: Insomnia Saccharomyces Boulardii (Florastor) 250 mg PO DAILY [facility] Last Admin: 09/10/19 09:20 Dose: 250 mg Sodium Chloride (Flush - Normal Saline) 10 ml IVF Q12HR [facility] Sodium Chloride (Flush - Normal Saline) 10 ml IVF PRN PRN PRN Reason: Saline Flush Triamterene/HCTZ (Maxzide-25) 1 tab PO DAILY [facility] Last Admin: 09/09/19 09:09 Dose: 1 tab Vital Signs & Weight: Vital Signs Temp Pulse Resp BP Pulse Ox 09/10/19 09:05 98.6 F 98 12 102/55 L 95 09/10/19 04:00 97.4 F L 84 21 H 127/81 96 Admit Weight 212 lb 12.8 oz Weight 216 lb 1.6 oz - Physical Exam General: alert & oriented x3 Neck: supple neck Cardiac: regular rate and rhythm, S1/S2 Lungs: clear to auscultation - Labs Result Diagrams: 09/10/19 04:06 09/10/19 04:06 Troponin/CKMB CK-MB (CK-2) 1.2 ng/mL (0-6.6) 09/03/19 22:24 Troponin I 0.020 ng/mL (< 0.028) 09/04/19 05:18 - Telemetry Sinus rhythms and dysrhythmias: sinus rhythm - Assessment/Plan Assessment/Plan: 1. New onset typical Atrial flutter with s/p CTI flutter RFA and DCCV on 2019 - was in Aflutter during weekend and converted back to SR around 0730 this AM; On Coreg 3.125mg BID and Eliquis;2nd Echo after the procedure showed no pericardial effusion 2. HTN - will hold Maxzide for today; 3. DM type 2 4. Frequent UTIs 5. Post polio paraplegia 6. Obese - strongly recommend to watch her diet. 7. Acute on Chronic Diastolic HF - Denied SOB this AM; on Fluid restriction 2000ml/day; On Coreg, Lasix, and Maxzide MAR reviewed Pt. seen and eval. by me. I agree with the A/P by the TUFTING SUPERVISOR and agree with the plan by Dr. Gillespie. If she remains stable after the Multaq then she could be d/c' d back to the [place] today or tomorrow. chest clear. RRR at this time. No significant edema. No cardiac complaints. gjm
[2019-09-10] MEDS: Triamterene/Hydrochlorothiazide 37.5 mg/25 mg Tablet PO SCH (10:37)
--- NOTE | 2019-09-10 10:37 | PDOC.EP ---
- Subjective Date: 09/10/19 Time: 10:33 Interval History: Pt had slight hypoxia on 09/08/19, but diuretics have resolved the issue. 2D ECHO has showed no effusion. Over weekend she developed sustained atypical atrial flutter with adequate VR control. - Objective Allergies/Adverse Reactions: Allergies Allergy/AdvReac Type Severity Reaction Status Date / Time sulfamethoxazole Allergy Verified 09/08/19 17:33 [From Bactrim] trimethoprim [From Bactrim] Allergy Verified 09/08/19 17:33 Current Medications Acetaminophen (Tylenol) 650 mg PO Q6H PRN PRN Reason: Pain Last Admin: 09/05/19 03:54 Dose: 650 mg Hydrocodone Bitart/Acetaminophen ([place] 5/325) 1 tab PO Q4H PRN PRN Reason: Mild Pain Hydrocodone Bitart/Acetaminophen ([place] 5/325) 2 tab PO Q4H PRN PRN Reason: For Moderate Pain Apixaban (Eliquis) 5 mg PO BID [facility] Last Admin: 09/10/19 09:20 Dose: 5 mg Carvedilol (Coreg) 3.125 mg PO BID-[facility] Last Admin: 09/09/19 17:16 Dose: 3.125 mg Cefdinir (Omnicef) 300 mg PO BID [facility] Last Admin: 09/10/19 09:20 Dose: 300 mg Cyclobenzaprine HCl (Flexeril) 5 mg PO Q8H PRN PRN Reason: Muscle Spasm Diphenhydramine HCl (Benadryl) 50 mg PO Q6H PRN PRN Reason: .Itching Furosemide (Lasix) 40 mg SLOW IVP 0600,1400 [facility] Last Admin: 09/10/19 06:12 Dose: 40 mg Guaifenesin (Mucinex) 600 mg PO Q12HR [facility] Last Admin: 09/10/19 09:20 Dose: 600 mg Insulin Human Lispro (Humalog) 0 units SC .MILD SLIDING SCALE PRN PRN Reason: Mild Correctional Scale Last Admin: 09/09/19 17:15 Dose: 2 unit Ketorolac Tromethamine (Toradol) 30 mg IVP Q6H PRN PRN Reason: Pain Stop: 09/11/19 18:14 Magnesium Hydroxide (Milk Of Magnesium) 30 ml PO DAILY PRN PRN Reason: Constipation Last Admin: 09/09/19 09:09 Dose: 30 ml Melatonin (Melatonin) 3 mg PO HS PRN PRN Reason: Insomnia Saccharomyces Boulardii (Florastor) 250 mg PO DAILY [facility] Last Admin: 09/10/19 09:20 Dose: 250 mg Sodium Chloride (Flush - Normal Saline) 10 ml IVF Q12HR [facility] Sodium Chloride (Flush - Normal Saline) 10 ml IVF PRN PRN PRN Reason: Saline Flush Triamterene/HCTZ (Maxzide-25) 1 tab PO DAILY [facility] Last Admin: 09/09/19 09:09 Dose: 1 tab Vital Signs & Weight: Vital Signs Temp Pulse Resp BP Pulse Ox 09/10/19 09:05 98.6 F 98 12 102/55 L 95 09/10/19 04:00 97.4 F L 84 21 H 127/81 96 Admit Weight 212 lb 12.8 oz Weight 216 lb 1.6 oz I/O: I/O 09/09/19 09/10/19 09/11/19 06:59 06:59 06:59 Intake Total 960 960 Output Total 1999 3100 Balance -1040 -2140 - Quality Measures Condition: Atrial Fibrillation/Flutter (hx or current) (lovenox) CV meds: Eliquis: Yes - Physical Exam General: alert & oriented x3, appears well, no apparent distress, other (obese) Neck: supple neck, no JVD/HJR Cardiology: regular rate and rhythm, no murmur. negative: audible murmur Lungs: clear to auscultation, normal breath sounds Abdomen: unremarkable, active bowel sounds, no hepatosplenomegaly Skin: groin sites stable Musculoskeletal: normal range of motion - Labs Result Diagrams: 09/10/19 04:06 09/10/19 04:06 - EKG Interpretation EKG Method: Telemetry (Atypical Atrial flutter with adequate VR control. Now back in SR.) - Assessment/Plan Assessment/Plan: 1. Atrial arrhythmias -s/p CTI flutter ablation 1. Typical isthmus dependent atrial flutter at baseline. 2. Cavotricuspid isthmus ablation performed. 3. Multi-circuit atrial arrhythmias noted, inducible pre and post ablation. 4. Atrial fibrillation was transiently seen and cardioverted. 5. Normal AV ofelia and His-Purkinje function with diltiazem effect still noted. 6. No change in cardiac silhouette pre and post ablation. -multiple left atrial circuits seen during EPS requiring DCCV. -on Eliquis 5mg BID for OAC. - recurrent atypical atrial flutter over weekend with adequate VR control. Now back in SR. Will start Multaq. Could consider flecainde or just rate control with BB if not tolerated. 2. Obesity 3. Post polio paraplegia 4. Diabetes 5. Hypertension 6. dyspnea post CTI ablation- now resolved with continued diuresis. -Preserved EF 55-60% on echo also with moderately enlarged left atrium Ok To discharge on home Multaq loading.
[2019-09-10] MEDS ORDERED: Dronedarone HCl 400 MG TAB PO SCH ×2 (10:46→11:00)
[2019-09-10] MEDS: Carvedilol 3.125 MG TAB PO SCH ×2 (10:52→17:30)
[2019-09-10] MEDS: HumaLOG 300 UNITS/3 ML VIAL SC PRN ×2 (13:23→17:37)
[2019-09-10] MEDS: Dronedarone HCl 400 MG TAB PO SCH (17:30)
[2019-09-11] MEDS: Furosemide 20 MG/2 ML VIAL SLOW IVP SCH (05:30)
[2019-09-11] MEDS: guaiFENesin ER 600 MG TAB PO SCH (09:08)
[2019-09-11] MEDS: Cefdinir 300 MG CAP PO SCH (09:08)
[2019-09-11] MEDS: Saccharomyces boulardii 250 MG CAP PO SCH (09:09)
[2019-09-11] MEDS: Dronedarone HCl 400 MG TAB PO SCH (09:09)
[2019-09-11] MEDS: Apixaban 5 MG TAB PO SCH (09:09)
[2019-09-11] MEDS: Triamterene/Hydrochlorothiazide 37.5 mg/25 mg Tablet PO SCH (09:10)
[2019-09-11] MEDS: Carvedilol 3.125 MG TAB PO SCH (09:10)
--- NOTE | 2019-09-11 09:19 | PDOC.CPN ---
- Subjective Date: 09/11/19 Time: 08:00 Interval history: The pt seen and examined. No overnight events. No cardiac complaints. - Objective Allergies/Adverse Reactions: Allergies Allergy/AdvReac Type Severity Reaction Status Date / Time sulfamethoxazole Allergy Verified 09/08/19 17:33 [From Bactrim] trimethoprim [From Bactrim] Allergy Verified 09/08/19 17:33 Visit Medications: Current Medications Acetaminophen (Tylenol) 650 mg PO Q6H PRN PRN Reason: Pain Last Admin: 09/05/19 03:54 Dose: 650 mg Hydrocodone Bitart/Acetaminophen ([place] 5/325) 1 tab PO Q4H PRN PRN Reason: Mild Pain Hydrocodone Bitart/Acetaminophen ([place] 5/325) 2 tab PO Q4H PRN PRN Reason: For Moderate Pain Apixaban (Eliquis) 5 mg PO BID [facility] Last Admin: 09/11/19 09:09 Dose: 5 mg Carvedilol (Coreg) 3.125 mg PO BID-[facility] Last Admin: 09/11/19 09:10 Dose: 3.125 mg Cefdinir (Omnicef) 300 mg PO BID [facility] Last Admin: 09/11/19 09:08 Dose: 300 mg Cyclobenzaprine HCl (Flexeril) 5 mg PO Q8H PRN PRN Reason: Muscle Spasm Diphenhydramine HCl (Benadryl) 50 mg PO Q6H PRN PRN Reason: .Itching Dronedarone (Multaq) 400 mg PO BID-[facility] Last Admin: 09/11/19 09:09 Dose: 400 mg Furosemide (Lasix) 40 mg PO DAILY-[facility] Guaifenesin (Mucinex) 600 mg PO Q12HR [facility] Last Admin: 09/11/19 09:08 Dose: 600 mg Insulin Human Lispro (Humalog) 0 units SC .MILD SLIDING SCALE PRN PRN Reason: Mild Correctional Scale Last Admin: 09/10/19 17:37 Dose: 3 unit Magnesium Hydroxide (Milk Of Magnesium) 30 ml PO DAILY PRN PRN Reason: Constipation Last Admin: 09/09/19 09:09 Dose: 30 ml Melatonin (Melatonin) 3 mg PO HS PRN PRN Reason: Insomnia Saccharomyces Boulardii (Florastor) 250 mg PO DAILY [facility] Last Admin: 09/11/19 09:09 Dose: 250 mg Sodium Chloride (Flush - Normal Saline) 10 ml IVF Q12HR [facility] Last Admin: 09/11/19 09:10 Dose: 10 ml Sodium Chloride (Flush - Normal Saline) 10 ml IVF PRN PRN PRN Reason: Saline Flush Triamterene/HCTZ (Maxzide-25) 1 tab PO DAILY [facility] Last Admin: 09/11/19 09:10 Dose: 1 tab Vital Signs & Weight: Vital Signs Temp Pulse Resp BP Pulse Ox 09/11/19 09:06 98.0 F 90 18 122/76 92 L 09/11/19 03:15 98.0 F 77 18 122/87 92 L Admit Weight 212 lb 12.8 oz Weight 216 lb 1.6 oz - Physical Exam General: alert & oriented x3 HEENT: mucus membranes moist Neck: supple neck Cardiac: regular rate and rhythm, S1/S2 Lungs: decreased breath sounds Neuro: cranial nerve 2-12 intact - Labs Result Diagrams: 09/10/19 04:06 09/10/19 04:06 Troponin/CKMB CK-MB (CK-2) 1.2 ng/mL (0-6.6) 09/03/19 22:24 Troponin I 0.020 ng/mL (< 0.028) 09/04/19 05:18 - Telemetry Sinus rhythms and dysrhythmias: sinus rhythm - Assessment/Plan Assessment/Plan: 1. New onset typical Atrial flutter with s/p CTI flutter RFA and DCCV on 2019 - was in Aflutter during weekend and converted back to SR around 0730 on ; On Multaq BID, Coreg 3.125mg BID and Eliquis; 2nd Echo after the procedure showed no pericardial effusion 2. HTN - stable today; 3. DM type 2 4. Frequent UTIs 5. Post polio paraplegia 6. Obese - strongly recommend to watch her diet. 7. Acute on Chronic Diastolic HF - Denied SOB this AM; on Fluid restriction 2000ml/day; On Coreg, Lasix, and Maxzide MAR reviewed * From Cardiac standpoint, the pt can be d/blake and f/u with Dr De Dios' office in 2 wks Pt. seen and eval. by me. I agree with the A/P by the LUSTER REPAIRER. No complaints. Chest s clear. RRR. Okay to d/c back to [place]. F/U with Dr. Gillespie as per his recommendation. sergo
[2019-09-11 11:42] VITALS: BP 119/67; TEMP 98.8
[2019-09-11] MEDS: HumaLOG 300 UNITS/3 ML VIAL SC PRN (11:44)
--- NOTE | 2019-09-11 13:45 | PDOC.EP ---
- Subjective Date: 09/11/19 Time: 08:00 Interval History: follow up for rhythm management. Started on Multaq and reported mild GI upset. Otherwise voices no new complaints to me today. - Review of Systems Constitutional: denies: chills, fever, malaise, sweats, weakness, other Respiratory: denies: cough, dry, hemoptysis, pleuritic pain, shortness of breath , SOB with excertion, sputum, wheezing, other Cardiology: denies: chest pain, edema, heart racing, light headedness Gastrointestinal: reports: diarrhea. denies: hematochezia, melena, vomitting - Objective Allergies/Adverse Reactions: Allergies Allergy/AdvReac Type Severity Reaction Status Date / Time sulfamethoxazole Allergy Verified 09/08/19 17:33 [From Bactrim] trimethoprim [From Bactrim] Allergy Verified 09/08/19 17:33 Current Medications Acetaminophen (Tylenol) 650 mg PO Q6H PRN PRN Reason: Pain Last Admin: 09/05/19 03:54 Dose: 650 mg Hydrocodone Bitart/Acetaminophen ([place] 5/325) 1 tab PO Q4H PRN PRN Reason: Mild Pain Hydrocodone Bitart/Acetaminophen ([place] 5/325) 2 tab PO Q4H PRN PRN Reason: For Moderate Pain Apixaban (Eliquis) 5 mg PO BID [facility] Last Admin: 09/11/19 09:09 Dose: 5 mg Carvedilol (Coreg) 3.125 mg PO BID-[facility] Last Admin: 09/11/19 09:10 Dose: 3.125 mg Cefdinir (Omnicef) 300 mg PO BID [facility] Last Admin: 09/11/19 09:08 Dose: 300 mg Cyclobenzaprine HCl (Flexeril) 5 mg PO Q8H PRN PRN Reason: Muscle Spasm Diphenhydramine HCl (Benadryl) 50 mg PO Q6H PRN PRN Reason: .Itching Dronedarone (Multaq) 400 mg PO BID-[facility] Last Admin: 09/11/19 09:09 Dose: 400 mg Furosemide (Lasix) 40 mg PO DAILY-[facility] Guaifenesin (Mucinex) 600 mg PO Q12HR [facility] Last Admin: 09/11/19 09:08 Dose: 600 mg Insulin Human Lispro (Humalog) 0 units SC .MILD SLIDING SCALE PRN PRN Reason: Mild Correctional Scale Last Admin: 09/11/19 11:44 Dose: 4 unit Magnesium Hydroxide (Milk Of Magnesium) 30 ml PO DAILY PRN PRN Reason: Constipation Last Admin: 09/09/19 09:09 Dose: 30 ml Melatonin (Melatonin) 3 mg PO HS PRN PRN Reason: Insomnia Saccharomyces Boulardii (Florastor) 250 mg PO DAILY [facility] Last Admin: 09/11/19 09:09 Dose: 250 mg Sodium Chloride (Flush - Normal Saline) 10 ml IVF Q12HR [facility] Last Admin: 09/11/19 09:10 Dose: 10 ml Sodium Chloride (Flush - Normal Saline) 10 ml IVF PRN PRN PRN Reason: Saline Flush Triamterene/HCTZ (Maxzide-25) 1 tab PO DAILY [facility] Last Admin: 09/11/19 09:10 Dose: 1 tab Vital Signs & Weight: Vital Signs Temp Pulse Resp BP Pulse Ox 09/11/19 11:37 98.8 F 68 16 119/67 93 L 09/11/19 09:06 98.0 F 90 18 122/76 92 L 09/11/19 03:15 98.0 F 77 18 122/87 92 L Admit Weight 212 lb 12.8 oz Weight 216 lb 1.6 oz I/O: I/O 09/10/19 09/11/19 09/12/19 06:59 06:59 06:59 Intake Total 960 1642 Output Total 3100 2525 Balance -3020 -415 - Quality Measures Condition: Atrial Fibrillation/Flutter (hx or current) (lovenox) CV meds: Eliquis: Yes - Physical Exam General: alert & oriented x3, appears well, no apparent distress, speech clear, affect appropriate HEENT: mucus membranes moist, normocephaly Neck: supple neck, midline trachea, no JVD/HJR Cardiology: no murmur, irregularly irregular Lungs: no rales, no rhonchi, wheezes Abdomen: unremarkable - Labs Result Diagrams: 09/10/19 04:06 09/10/19 04:06 - EKG Interpretation EKG Method: Telemetry EKG shows: Atypical atrial flutter - Assessment/Plan Assessment/Plan: 1. Atrial arrhythmias -s/p CTI flutter ablation -multiple left atrial circuits seen during EPS requiring DCCV. -on Eliquis 5mg BID for OAC. - recurrent atypical atrial flutter over weekend with adequate VR control. Now back in SR. Will start Multaq. Could consider flecainde or just rate control with BB if not tolerated. 2. Obesity 3. Atrial fibrillation was transiently seen and cardioverted. 4. Normal AV ofelia and His-Purkinje function with diltiazem effect still noted at time to EP study 5. No change in cardiac silhouette pre and post ablation. 6. Post polio paraplegia 7. Diabetes 8. Hypertension 9. Dyspnea post CTI ablation - now resolved with increased diuresis. 10. Preserved EF 55-60% on echo also with moderately enlarged left atrium Atypical atrial flutter continues as she is loading on Multaq. OK to DC by EP with continued Multaq and Eliquis.
--- NOTE | 2019-09-11 14:35 | PDOC.HOSPP ---
- Subjective Encounter Date: 09/10/19 Subjective: Feeling generally well. Breathing is improved. No other complaints. - Objective Vital Signs & Weight: Vital Signs (12 hours) Temp Pulse Resp BP Pulse Ox 09/11/19 11:37 98.8 F 68 16 119/67 93 L 09/11/19 09:06 98.0 F 90 18 122/76 92 L 09/11/19 03:15 98.0 F 77 18 122/87 92 L Weight Admit Weight 212 lb 12.8 oz Weight 216 lb 1.6 oz I&O: 09/10/19 09/11/19 09/12/19 06:59 06:59 06:59 Intake Total 960 1642 Output Total 3103 5980 Balance -4207 -272 Result Diagrams: 09/10/19 04:06 09/10/19 04:06 Additional Labs: Accuchecks 09/11/19 09/11/19 09/10/19 11:18 06:20 20:31 POC Glucose 255 H 149 H 219 H 09/10/19 09/10/19 17:16 11:22 POC Glucose 202 H 301 H Hospitalist ROS - Medication Medications: Active Medications Generic Name Dose Route Start Last Admin Trade Name Freq PRN Reason Stop Dose Admin Acetaminophen 650 mg 09/05/19 03:46 09/05/19 03:54 Tylenol PO 650 mg Q6H PRN Administration Pain Apixaban 5 mg 09/07/19 21:00 09/11/19 09:09 Eliquis PO 5 mg BID [facility] Administration Carvedilol 3.125 mg 09/05/19 17:00 09/11/19 09:10 Coreg PO 3.125 mg BID-[facility] Administration Cefdinir 300 mg 09/09/19 21:00 09/11/19 09:08 Omnicef PO 300 mg BID [facility] Administration Dronedarone 400 mg 09/10/19 17:00 09/11/19 09:09 Multaq PO 400 mg BID-[facility] Administration Guaifenesin 600 mg 09/09/19 21:00 09/11/19 09:08 Mucinex PO 600 mg Q12HR [facility] Administration Insulin Human Lispro 0 units 09/04/19 18:02 09/11/19 11:44 Humalog SC 4 unit .MILD SLIDING SCALE PRN Administration Mild Correctional Scale Magnesium Hydroxide 30 ml 09/04/19 19:34 09/09/19 09:09 Milk Of Magnesium PO 30 ml DAILY PRN Administration Constipation Saccharomyces Boulardii 250 mg 09/05/19 09:00 09/11/19 09:09 Florastor PO 250 mg DAILY [facility] Administration Sodium Chloride 10 ml 09/10/19 21:00 09/11/19 09:10 Flush - Normal Saline IVF 10 ml Q12HR [facility] Administration Triamterene/HCTZ 1 tab 09/05/19 09:00 09/11/19 09:10 Maxzide-25 PO 1 tab DAILY [facility] Administration - Exam General Appearance: NAD, awake alert General - other findings: Obese. Heart: RRR, no murmur, no gallops, no rubs, normal peripheral pulses Respiratory: CTAB, no wheezes, no rales, no ronchi, normal chest expansion, no tachypnea, normal percussion Gastrointestinal: soft, non-tender, non-distended, normal bowel sounds, no palpable masses, no hepatomegaly, no splenomegaly, no bruit Extremities: no cyanosis, no clubbing, no edema Skin: normal turgor Neurological - other findings: Incomplete quadriplegia. Musculoskeletal: generalized weakness Hosp A/P (1) Acute combined systolic (congestive) and diastolic (congestive) heart failure Code(s): I50.41 - ACUTE COMBINED SYSTOLIC AND DIASTOLIC (CONGESTIVE) HRT FAIL Status: Acute (2) Morbid obesity with BMI of 40.0-44.9, adult Code(s): E66.01 - MORBID (SEVERE) OBESITY DUE TO EXCESS CALORIES; Z68.41 - BODY MASS INDEX (BMI) 40.0-44.9, ADULT Status: Acute (3) Hypertension Code(s): I10 - ESSENTIAL (PRIMARY) HYPERTENSION Status: Acute (4) New onset atrial flutter Code(s): I48.92 - UNSPECIFIED ATRIAL FLUTTER Status: Acute (5) Type 2 diabetes mellitus Status: Acute (6) Acute respiratory failure with hypoxia Code(s): J96.01 - ACUTE RESPIRATORY FAILURE WITH HYPOXIA Status: Acute (7) Post-polio syndrome Code(s): G14 - POSTPOLIO SYNDROME Status: Acute (8) Pneumonia Code(s): J18.9 - PNEUMONIA, UNSPECIFIED ORGANISM Status: Acute - Plan Resp Failure: Hypoxia improved. Room air sats are good. Continue diuresis today. Repeat CXR in am. Atrial Flutter with RVR: S/P ablation. Converted to NSR. had episode of recurrence and the NSR. On anticoagulation for inducible afib. Continue rate control with BB. Cardiology aware. CHF: Preserved EF. Secondary to tachycardia, DD. On IV lasix. Modest diuresis. Appears some better. Continue IV Lasix. DM: Well controlled. HTN: Well controlled. Possible pneumonia: On CXR Omnicef. Mobilize as possible. Discussed with nurse. Adding guaifenesin. Post-polio syndrome: Generalized debility. Increase activity with PT.
[2019-09-12] MEDS ORDERED: Furosemide 40 MG TAB PO SCH (07:30)
--- NOTE | 2019-09-12 22:40 | EKG ---
Test Reason : TIMED Blood Pressure : / mmHG Vent. Rate : 078 BPM Atrial Rate : 078 BPM P-R Int : 160 ms QRS Dur : 088 ms QT Int : 398 ms P-R-T Axes : 054 000 -23 degrees QTc Int : 453 ms Normal sinus rhythm Low voltage QRS Nonspecific T wave abnormality Abnormal ECG When compared with ECG of 07-SEP-2019 10:24, Nonspecific T wave abnormality, worse in Inferior leads Nonspecific T wave abnormality, improved in Lateral leads Confirmed by Shade SAMUEL ([id number]) on 09/12/2019 10:40:22 PM Referred By: NICOLAS Confirmed By:Shade SAMUEL
== END 2019-09-11 14:50 | DRG 273 ==
LOC: ERS 21:36 → ERHOLD 09-04 02:22 → 2NO 09-04 09:51
PROVIDERS: ADMIT Internal Medicine; ATTEND Internal Medicine
PROC: 02583ZZ Destruction of Conduction Mechanism, Percutaneous Approach (ICD-10-PCS; principal; 2019-09-06)
PROC: B24BZZ4 Ultrasonography of Heart with Aorta, Transesophageal (ICD-10-PCS; 2019-09-06)
PROC: 4A023FZ Measurement of Cardiac Rhythm, Percutaneous Approach (ICD-10-PCS; 2019-09-06)
PROC: 4A0234Z Measurement of Cardiac Electrical Activity, Percutaneous Approach (ICD-10-PCS; 2019-09-06)
PROC: 02K83ZZ Map Conduction Mechanism, Percutaneous Approach (ICD-10-PCS; 2019-09-06)
PROC: 5A2204Z Restoration of Cardiac Rhythm, Single (ICD-10-PCS; 2019-09-06)
DX: I48.4 Atypical atrial flutter (principal); I50.43 Acute on chronic combined systolic (congestive) and diastolic (congestive) heart failure; J96.01 Acute respiratory failure with hypoxia; J18.9 Pneumonia, unspecified organism; Z68.41 Body mass index [BMI] 40.0-44.9, adult; G82.20 Paraplegia, unspecified; G14 Postpolio syndrome; M90.80 Osteopathy in diseases classified elsewhere, unspecified site; G47.00 Insomnia, unspecified; M19.90 Unspecified osteoarthritis, unspecified site; E11.9 Type 2 diabetes mellitus without complications; I11.0 Hypertensive heart disease with heart failure; E66.01 Morbid (severe) obesity due to excess calories; I48.91 Unspecified atrial fibrillation; Z90.710 Acquired absence of both cervix and uterus; Z88.1 Allergy status to other antibiotic agents; Z74.01 Bed confinement status; Z88.2 Allergy status to sulfonamides; Z79.4 Long term (current) use of insulin; Z79.82 Long term (current) use of aspirin; Z79.899 Other long term (current) drug therapy; Z79.01 Long term (current) use of anticoagulants; Z28.21 Immunization not carried out because of patient refusal; Z87.440 Personal history of urinary (tract) infections
CPT/HCPCS: 36415; 36416; 71045; 71275; 76942; 80048; 80053; 81003; 81015; 82553; 82565; 83690; 83735; 83880; 84132; 84443; 84484; 85014; 85018; 85025; 85049; 85379; 87086; 92960; 93005; 93010; 93306; 93312; 93613; 93621; 93623; 93653; 96365; 96366; 96367; 96375; 96376; C1730; C1732; C1769; J0153; J0696; J1160; J1265; J1644; J1650; J1940; J2001; J2250; J2704; J3010; J3475; J3490; Q9967